=== PATIENT | female | born 1970 | race Caucasian/White ===

== ENCOUNTER 2018-02-27 12:29 | Emergency (ER) | payer MEDICAID ==
[~2018-02-27] VITALS: Ht 154.9 cm; Wt 60.8 kg
[~2018-02-27 12:29] MED LIST: GLIP10TA3 PO; VAS2.5 PO
[2018-02-27 12:36] VITALS: BP 152/79
[2018-02-27] MEDS ORDERED: VAS10 PO (12:42)
--- NOTE | 2018-02-27 12:42 | NUR ---
PT SENT TO LOBBY TO WAIT FOR A BED. VSS. WITH PATIENT.
--- NOTE | 2018-02-27 13:52 | NUR ---
pt ambulated to bed 3
--- NOTE | 2018-02-27 14:03 | NUR ---
PATIENT IS A47 YO FEMALE BIB SELF FOR VAGINAL BLEEDING AND ABDOMINAL PAIN. PATIENT IS AWAKE AND ALERT NO ACUTE DISTRESS. TO BED 3 AWAITING MD LIRA. Addendum: 02/27/18 at 1541 by MED1 C/O MCALLISTER & LOWER ABDOMINAL PAIN 03/04.
[2018-02-27 14:13] LABS: BASOPHILS % (AUTO) 0.3 % (0.0-2.0); EOSINOPHILS % (AUTO) 0.7 % (0.0-4.0); HEMOGLOBIN 10.6 g/dL (12.0-16.0); LYMPHOCYTES % (AUTO) 28.5 % (20.5-51.1); MEAN CORPUSCULAR HEMOGLOBIN 21 pg (27-31); MEAN CORPUSCULAR HGB CONC 31 g/dL (33-37); MEAN CORPUSCULAR VOLUME 66.1 fL (80-94); MONOCYTES # (AUTO) 0.4 K/uL (0.8-1.0); MONOCYTES % (AUTO) 5.7 % (1.7-9.3); NEUTROPHILS # (AUTO) 4.5 K/uL (1.8-7.7); NEUTROPHILS % (AUTO) 64.8 % (42.2-75.2); PLATELET COUNT (AUTO) 260 K/uL (140-450); RED BLOOD CELL COUNT(AUTO) 5.14 MIL/uL (4.20-5.40); RED CELL DISTRIBUTION WIDTH 17.1 % (11.6-13.7); WHITE BLOOD COUNT (AUTO) 6.9 K/uL (4.8-10.8)
[2018-02-27 14:17] LABS: ANION GAP 11.8 (8-16); CARBON DIOXIDE 27.1 mmol/L (21-32); CREATININE 0.8 mg/dL (0.6-1.3); POTASSIUM 3.9 mmol/L (3.5-5.1)
--- NOTE | 2018-02-27 15:46 | NUR ---
Patient being evaluated by DR PYLE at bedside.
[2018-02-27] MEDS ORDERED: KETOROLAC 60 MG/2 ML VIAL IM ONE (16:35)
[2018-02-27 17:05] VITALS: BP 147/61
--- NOTE | 2018-02-27 17:06 | NUR ---
Patient discharged with v/s stable. Written and verbal after care instructions given and explained. Patient alert, oriented and verbalized understanding of instructions. Ambulatory with steady gait. All questions addressed prior to discharge. ID band removed. Patient advised to follow up with PMD. Rx of KEFLEX, AND MOTRIN given. Patient educated on indication of medication including possible reaction and side effects. Opportunity to ask questions provided and answered.
== END 2018-02-27 17:06 | disposition home or self-care (01) ==
LOC: MED 12:29
DX: N93.8 Other specified abnormal uterine and vaginal bleeding (principal); N39.0 Urinary tract infection, site not specified; D25.9 Leiomyoma of uterus, unspecified; E11.9 Type 2 diabetes mellitus without complications; I10 Essential (primary) hypertension
CPT/HCPCS: 36415; 76830; 80048; 81002; 81025; 85025; 85610; 96372; 99285; J1885; Q0092

== ENCOUNTER 2018-05-18 19:35 | Emergency (ER) | payer MEDICAID ==
[~2018-05-18] VITALS: Ht 157.5 cm; Wt 60.3 kg
[~2018-05-18 19:35] MED LIST changes: +VAS10 PO; -VAS2.5 PO
[2018-05-18 19:40] VITALS: BP 170/85
[2018-05-18] MEDS ORDERED: HYDROcodone/APAP 5/325 MG 1 TAB TAB PO ONE (19:55)
[2018-05-18 20:51] VITALS: BP 167/77
== END 2018-05-18 20:52 | disposition home or self-care (01) ==
LOC: MED 19:35
DX: S92.331A Displaced fracture of third metatarsal bone, right foot, initial encounter for closed fracture (principal); S92.341A Displaced fracture of fourth metatarsal bone, right foot, initial encounter for closed fracture; E11.9 Type 2 diabetes mellitus without complications; I10 Essential (primary) hypertension; Z79.84 Long term (current) use of oral hypoglycemic drugs; Z79.899 Other long term (current) drug therapy; X58.XXXA Exposure to other specified factors, initial encounter; Y93.89 Activity, other specified; Y92.89 Other specified places as the place of occurrence of the external cause; Y99.8 Other external cause status
CPT/HCPCS: 29515; 73630; 99284

== ENCOUNTER 2018-10-30 21:08 | Emergency (ER) | payer MEDICAID ==
[~2018-10-30] VITALS: Ht 154.9 cm; Wt 63.5 kg
[2018-10-30 21:15] VITALS: BP 147/89
--- NOTE | 2018-10-30 21:25 | NUR ---
c/o rt ear ache and headache x3 days . no bleeding or drainage from ear. pt has not taken any otc meds for pain. pt sitting in bed, awake, acting appropriate, at bedside. pmh dm, htn
[2018-10-30] MEDS ORDERED: DIAZEPAM 5 MG TAB PO ONE (21:55)
[2018-10-30] MEDS ORDERED: KETOROLAC 30 MG/ML VIAL IM ONE (21:55)
--- NOTE | 2018-10-30 22:02 | NUR ---
pt sent to ct via bed with tech aaox4
[2018-10-30 22:49] VITALS: BP 142/78
--- NOTE | 2018-10-30 22:49 | NUR ---
Patient discharged with v/s stable. Written and verbal after care instructions given and explained. Patient alert, oriented and verbalized understanding of instructions. Ambulatory with steady gait. All questions addressed prior to discharge. ID band removed. Patient advised to follow up with PMD. Rx of FIORICET given. Patient educated on indication of medication including possible reaction and side effects. Opportunity to ask questions provided and answered.
== END 2018-10-30 22:41 | disposition home or self-care (01) ==
LOC: MED 21:08
DX: R51 Headache (principal); H92.01 Otalgia, right ear; I10 Essential (primary) hypertension; E11.9 Type 2 diabetes mellitus without complications
CPT/HCPCS: 70450; 81025; 96372; 99284; J1885

== ENCOUNTER 2018-12-17 21:19 | Emergency (ER) | payer MEDICAID ==
[~2018-12-17] VITALS: Ht 154.9 cm; Wt 58.2 kg
[~2018-12-17 21:19] MED LIST changes: +ENAL-197 PO; -VAS10 PO
[2018-12-17 21:28] VITALS: BP 144/74
--- NOTE | 2018-12-17 21:39 | NUR ---
PT AMBULATED TO THE RESTROOM, VSS
[2018-12-17] MEDS ORDERED: MECLIZINE 25 MG TAB PO ONE (21:40)
--- NOTE | 2018-12-17 21:50 | NUR ---
Patient ambulated to bed 7 with family. RN evaluating patient at bedside.
--- NOTE | 2018-12-17 22:30 | NUR ---
Pt presents to ED with complaints of dizziness that started this morning around 1100. Pt denies any syncope or LOC. Pt also c/o nausea, denies vomiting. Pt also c/o pain behing right ear, denies any injury or trauma. NAD noted. VSS. at bedside. Skin warm and dry, normal in color for ethnicity. Placed on bus monitor, pulse oximetry and blood pressure monitoring. NSR on bus monitor. HR 82. 98% on room air. Will continue to monitor, waiting for ERMD evaluation.
--- NOTE | 2018-12-18 00:31 | NUR ---
Pt ambulated to restroom with steady gait.
--- NOTE | 2018-12-18 00:48 | NUR ---
Dr. Fisher evaluating patient at bedside.
[2018-12-18] MEDS ORDERED: KETOROLAC 60 MG/2 ML VIAL IM ONE (00:55)
[2018-12-18] MEDS ORDERED: KETOROLAC 30 MG/ML VIAL ONE (01:06)
[2018-12-18 01:16] VITALS: BP 143/65
--- NOTE | 2018-12-18 01:16 | NUR ---
Patient discharged with v/s stable. Written and verbal after care instructions given and explained. Patient alert, oriented and verbalized understanding of instructions. Ambulatory with steady gait. All questions addressed prior to discharge. ID band removed. Patient advised to follow up with PMD. Rx of Cipro 500mg, Motrin 600mg and Zofran 8mg given. Patient educated on indication of medication including possible reaction and side effects. Opportunity to ask questions provided and answered.
== END 2018-12-18 01:16 | disposition home or self-care (01) ==
LOC: MED 21:19
DX: H92.01 Otalgia, right ear (principal); N39.0 Urinary tract infection, site not specified; E11.9 Type 2 diabetes mellitus without complications; I10 Essential (primary) hypertension; Z90.49 Acquired absence of other specified parts of digestive tract; Z98.890 Other specified postprocedural states; Z79.84 Long term (current) use of oral hypoglycemic drugs; Z79.899 Other long term (current) drug therapy
CPT/HCPCS: 81002; 81025; 96372; 99283; J1885; J8597

== ENCOUNTER 2019-02-14 13:26 | Emergency (ER) | payer MEDICAID ==
[~2019-02-14] VITALS: Ht 152.4 cm; Wt 59.0 kg
[2019-02-14 14:05] VITALS: BP 139/92
--- NOTE | 2019-02-14 14:24 | NUR ---
pt ambulated to bed 7
--- NOTE | 2019-02-14 14:30 | NUR ---
C/O COUGH AND HEADACHE FOR 3 DAYS, & N/V/FEVER. BREATHING UNLABORED, LUNGS CLEAR & EQUAL BILAT, BOWEL SOUNDS PRESENT X4, LBM 02/13/19 SKIN IS PINK/WARM/DRY; AAOX4 WITH EVEN AND STEADY GAIT; LUNGS CLEAR BL; HR EVEN AND REGULAR; VSS; PATIENT POSITIONED FOR COMFORT; HOB ELEVATED; BEDRAILS UP X1; BED DOWN. ER MD MADE AWARE OF PT STATUS.
[2019-02-14] MEDS ORDERED: ONDANSETRON 4 MG/2 ML VIAL IVP ONE (14:50)
[2019-02-14] MEDS ORDERED: KETOROLAC 30 MG/ML VIAL IVP ONE (14:50)
[2019-02-14] MEDS ORDERED: KETOROLAC 30 MG/ML VIAL IM ONE ×2 (14:50→14:55)
[2019-02-14] MEDS ORDERED: NACL 0.9% 1,000 ML IV ONE (14:50)
[2019-02-14] MEDS ORDERED: ONDANSETRON 4 MG ODT PO ONE ×2 (14:50→14:55)
[2019-02-14] MEDS ORDERED: ALBUTEROL SULFATE/IPRATROPIU 3 ML SOL IH ONE (14:55)
--- NOTE | 2019-02-14 15:00 | NUR ---
FLU SWAB COLLECTED AND SENT TO LAB
--- NOTE | 2019-02-14 15:51 | NUR ---
[facility]ER[facility] RESPIRATORY DRUG GIVEN NCOURAGED PATIENT FOR INTERMITTENT DEEP BREATHING DURING THERAPY
--- NOTE | 2019-02-14 16:11 | NUR ---
MADE AWARE OF SPO2% 92 ROOM AIR---
--- NOTE | 2019-02-14 16:24 | NUR ---
MD SPOKE WITH PT---PT DENIES SOB FULL CLEAR SPEECH--AGREE WITH DC HOME; WILL F/U WITH PMD
[2019-02-14 16:30] VITALS: BP 129/49
--- NOTE | 2019-02-14 16:30 | NUR ---
Patient discharged with v/s stable. Written and verbal after care instructions given and explained. Patient alert, oriented and verbalized understanding of instructions. Ambulatory with steady gait. All questions addressed prior to discharge. ID band removed. Patient advised to follow up with PMD. Rx of GUAIATUSSIN & ALBUTEROL given. Patient educated on indication of medication including possible reaction and side effects. Opportunity to ask questions provided and answered.
== END 2019-02-14 16:30 | disposition home or self-care (01) ==
LOC: MED 13:26
DX: J20.9 Acute bronchitis, unspecified (principal); E11.9 Type 2 diabetes mellitus without complications; I10 Essential (primary) hypertension; Z90.49 Acquired absence of other specified parts of digestive tract; Z79.84 Long term (current) use of oral hypoglycemic drugs; Z79.899 Other long term (current) drug therapy
CPT/HCPCS: 71045; 87804; 94640; 96372; 99283; J1885; J7620; Q0092; Q0162; 93005

== ENCOUNTER 2019-04-08 18:34 | Emergency (ER) | payer MEDICAID ==
[~2019-04-08] VITALS: Ht 154.9 cm; Wt 62.2 kg
[2019-04-08 18:36] VITALS: BP 127/81
--- NOTE | 2019-04-08 18:40 | NUR ---
TO LOBBY WITH VSS, AWAITNG BED IN ED.
--- NOTE | 2019-04-08 19:39 | NUR ---
PT TAKEN TO BED 12.
[2019-04-08 19:49] VITALS: BP 127/81
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
--- NOTE | 2019-04-08 21:10 | NUR ---
LACERATION TO L FOOT CLEANED BY EMT. PT STATED "IT DOESNT LOOK TO BAD. CAN I JUST LEAVE?" DR GALLAGHER MADE AWARE.
--- NOTE | 2019-04-08 21:15 | NUR ---
DR. GALLAGHER AGREED TO PT DISCHARGE. PT LEFT WITH DISCHAREGE INFORMATION.
== END 2019-04-08 21:15 | disposition left against medical advice (07) ==
LOC: MED 18:34
DX: S91.312A Laceration without foreign body, left foot, initial encounter (principal); E11.9 Type 2 diabetes mellitus without complications; F03.90 Unspecified dementia, unspecified severity, without behavioral disturbance, psychotic disturbance, mood disturbance, and anxiety; I10 Essential (primary) hypertension; Z90.49 Acquired absence of other specified parts of digestive tract; Z98.51 Tubal ligation status; Z79.84 Long term (current) use of oral hypoglycemic drugs; Z79.899 Other long term (current) drug therapy; W20.8XXA Other cause of strike by thrown, projected or falling object, initial encounter; Y93.89 Activity, other specified; Y92.89 Other specified places as the place of occurrence of the external cause; Y99.8 Other external cause status
CPT/HCPCS: 73630; 99283

== ENCOUNTER 2020-01-06 12:16 | Inpatient (IN) | payer MEDICAID ==
[~2020-01-06] VITALS: Ht 154.9 cm; Wt 60.8 kg
[2020-01-06 12:35] VITALS: BP 169/70
--- NOTE | 2020-01-06 12:57 | NUR ---
PATIENT AMBULATED TO BED 10
--- NOTE | 2020-01-06 13:06 | NUR ---
C/O PAIN 6/10 TO R FOOT. REDNESS NOTED AROUND 1ST TOE, WELL WHITE PATCHY SKIN SURROUNDING 1ST TOE. DENIES INJURY. PT AWAKE , ALERT, AFIBRILE, AMBULATORY WITH STEADY GAIT. HX: DM , HTN MEDS TAKEN
--- NOTE | 2020-01-06 14:14 | NUR ---
PT COMFORTABLE ON BED ,SIDE RAILS UP AND LOCK.
--- NOTE | 2020-01-06 14:20 | NUR ---
DR ROWLAND AT BEDSIDE EVALUATING PT.
[2020-01-06] MEDS ORDERED: NACL 0.9% 500 ML IV SCH (14:23)
[2020-01-06 15:03] LABS: BASOPHILS % (AUTO) 0.3 % (0.0-2.0); EOSINOPHILS # (AUTO) 0.1 K/uL (0-0.4); HEMATOCRIT 35.3 % (36-48); HEMOGLOBIN 11.6 g/dL (12.0-16.0); LYMPHOCYTES # (AUTO) 1.5 K/uL (2.5-16.5); LYMPHOCYTES % (AUTO) 23.9 % (20.5-51.1); MEAN CORPUSCULAR HEMOGLOBIN 26 pg (27-31); MEAN CORPUSCULAR HGB CONC 33 g/dL (33-37); MEAN CORPUSCULAR VOLUME 78.8 fL (80-94); MONOCYTES # (AUTO) 0.4 K/uL (0.8-1.0); NEUTROPHILS # (AUTO) 4.4 K/uL (1.8-7.7); NEUTROPHILS % (AUTO) 68.8 % (42.2-75.2); PLATELET COUNT (AUTO) 242 K/uL (140-450); RED BLOOD CELL COUNT(AUTO) 4.48 MIL/uL (4.20-5.40); RED CELL DISTRIBUTION WIDTH 14.8 % (11.6-13.7); WHITE BLOOD COUNT (AUTO) 6.4 K/uL (4.8-10.8)
[2020-01-06 15:16] LABS: CARBON DIOXIDE 30.9 mmol/L (21-32); CREATININE 0.9 mg/dL (0.6-1.3); POTASSIUM 3.9 mmol/L (3.5-5.1); PROTHROMBIN TIME 9.5 secs (10.8-13.4); TOTAL BILIRUBIN 0.3 mg/dL (0.0-1.0)
--- NOTE | 2020-01-06 16:14 | NUR ---
XRAY AT BEDSIDE.
--- NOTE | 2020-01-06 16:21 | NUR ---
PT C/O HEADACHE AT 05/04 DR ROWLAND INFORMED.
[2020-01-06] MEDS ORDERED: VANCOMYCIN 1,000 MG in DEXTROSE 5% 250 ML IV ONE (16:25)
[2020-01-06] MEDS ORDERED: KETOROLAC 30 MG/ML VIAL IVP ONE (16:25)
[2020-01-06] MEDS ORDERED: VANCOMYCIN 1,000 MG VIAL ONE ×2 (16:29→16:31)
[2020-01-06] MEDS ORDERED: LORazepam 2 MG/ML VIAL IM/IVP PRN (17:05)
[2020-01-06] MEDS ORDERED: ZOLPIDEM 5 MG TAB PO PRN (17:05)
[2020-01-06] MEDS ORDERED: ONDANSETRON 4 MG/2 ML VIAL IM/IVP PRN (17:05)
[2020-01-06] MEDS ORDERED: DOCUSATE SODIUM 100 MG GELCAP PO PRN (17:05)
[2020-01-06] MEDS ORDERED: MORPHINE SULFATE 2 MG/ML SYR IVP PRN (17:05)
[2020-01-06] MEDS ORDERED: ACETAMINOPHEN 325 MG TAB PO PRN (17:05)
[2020-01-06] MEDS ORDERED: HYDROcodone/APAP 5/325 MG 1 TAB TAB PO PRN (17:05)
[2020-01-06] MEDS ORDERED: DEXTROSE 50% 50 ML SYR IVP PRN (17:05)
[2020-01-06] MEDS ORDERED: VANCOMYCIN PER PHARMACY MC PRN (17:10)
--- NOTE | 2020-01-06 17:50 | NUR ---
Patient will be admitted to care of DR GRIMM. Admited to TELE. Will go to room 119 B. Belongings list completed. Report to robert DREW.
--- NOTE | 2020-01-06 17:50 | NUR ---
RECEIVED BEDSIDE REPORT FROM ED NURSE. PT RESTING IN BED UPON ARRIVAL. ABLE TO MAKE NEEDS KNOWN. RESPIRATIONS EVEN AND UNLABORED WITH NO SOB OR RESPIRATORY DISTRESS. SKIN WARM AND DRY TO TOUCH. IV SITE IN RIGHT WRIST IS CLEAN, DRY, AND INTACT. MRSA SWAB COLLECTED. VITAL SIGNS ARE: 145/75 BP, 88 HR, 17 RR, 97.9 TEMP, 99% SPO2 ON RA. SAFETY MEASURES IN PLACE. WILL CONTINUE TO MONITOR.
[2020-01-06 18:23] LABS: CHOL/HDL RATIO 5.8 (1-4.5); MAGNESIUM 1.8 mg/dL (1.8-2.4); THYROID STIMULATING HORMONE 0.88 uIU/mL (0.34-3.74)
[2020-01-06] MEDS: NACL 0.9% 1,000 ML IV SCH (18:40)
--- NOTE | 2020-01-06 18:45 | NUR ---
ADMINISTERED SCHED IVF PRESCRIBED PER MD ORDER. PT TOLERATED WELL. MEDICATION EDUCATION PERFORMED. PT VERBALIZED UNDERSTANDING. SAFETY MEASURES IN PLACE. WILL CONTINUE TO MONITOR.
--- NOTE | 2020-01-06 19:12 | NUR ---
ENDORSED AT BEDSIDE WITH NIGHTSHIFT NURSE. PT RESTING IN BED UPON ARRIVAL. ABLE TO MAKE NEEDS KNOWN. RESPIRATIONS EVEN AND UNLABORED WITH NO SOB OR RESPIRATORY DISTRESS. SKIN WARM AND DRY TO TOUCH. SAFETY MEASURES IN PLACE. PT IS STABLE
--- NOTE | 2020-01-06 19:20 | NUR ---
RECEIVED REPORT FROM DAY SHIFT NURSE. PATIENT AWAKE, ALERT, AND COOPERATIVE. ADMITTING DX: DIABETIC FOOT. PATIENT IS HAITIAN SPEAKING ONLY, USED [employer] ASSOCIATE PROFESSOR #[id number]. RESPIRATIONS EVEN AND UNLABORED ON ROOM AIR. NO DISTRESS NOTED. SKIN IS WARM AND DRY. RIGHT BIG TOE CLOSED. DENIES PAIN. HEART RATE REGULAR. S1 AND S2 NOTED. LUNG SOUNDS CLEAR UPON AUSCULTATION. BOWEL SOUNDS PRESENT ON ALL QUADRANTS. ABDOMEN SOFT AND NON-TENDER. LAST BM YESTERDAY 01/05/2020. ORIENT PATIENT TO ROOM, STAFF, AND CALL LIGHT. ALL SAFETY MEASURES IN PLACE. BED IN LOW POSITION, CALL LIGHT WITHIN REACH AND VERBALIZED ITS USE. WILL CONTINUE TO MONITOR.
[2020-01-06] MEDS ORDERED: glipiZIDE 10 MG TAB PO SCH (21:00)
[2020-01-06] MEDS: ENALAPRIL 10 MG TAB PO SCH (21:24)
[2020-01-06] MEDS: INSULIN LISPRO SLIDING SCALE 100 UNITS/ML VIAL SUBQ PRN (21:26)
[2020-01-06] MEDS: BLOOD GLUCOSE MONITORING 1 DEV DEV FS SCH (21:28)
--- NOTE | 2020-01-06 21:30 | NUR ---
SCHEDULED MEDICATIONS GIVENS. PATIENT DENIES PAIN AT THIS TIME. SAFETY PRECAUTIONS IN PLACE. BED IN LOW POSITION, CALL LIGHT WITHIN REACH. WILL CONTINUE TO MONITOR.
[2020-01-06] MEDS: glipiZIDE 10 MG TAB PO SCH (21:31)
[2020-01-06 21:49] VITALS: BP 171/67
[2020-01-06] MEDS ORDERED: PIPERACILLIN/TAZOBACTAM 3.375 GM VIAL IV ONE (23:46)
[2020-01-06] MEDS: PIPERACILLIN/TAZOBACTAM 3.375 GM in DEXTROSE 5% 50 ML IV SCH (23:55)
--- NOTE | 2020-01-06 23:55 | NUR ---
PATIENT ON BED SLEEPING, AROUSABLE TO VOICE. FIRST DOSE OF ZOSYN GIVEN. REMINDED PATIENT ON NPO STATUS STARTING AT MIDNIGHT. PATIENT VERBALIZED UNDERSTANDING. WILL CONTINUE TO MONITOR.
[2020-01-07] VITALS: BP 167/64
--- NOTE | 2020-01-07 00:30 | NUR ---
PT RECEIVED ORDERED IV ABT ZOSYN NO ADVERSE SIDE EFFECTS NOTED. PT EDUCATION REGARDING MEDICATIONS AND SIDE EFFECTS PROVIDED AT BEDSIDE. PT C/O 06/04 HEADACHE WHICH SHE SAID CAME BACK FORM EARLIER ON. PT RECEIVED MORPHINE IVP FOR SEVERE PAIN. DIANNE FROM NUCLEAR MEDICINE CAME AND BROUGHT PT BY W/C TO NUCLEAR MEDICINE TO COMPLETE TEST FOR BONE SCAN.
--- NOTE | 2020-01-07 02:21 | NUR ---
ROUNDS MADE. PATIENT LYING IN BED SLEEPING. NO SIGNS OF DISTRESS NOTED. IV PATENT AND INFUSING WELL. SAFETY MEASURES IN PLACE. BED IN LOWEST POSITION, SIDE RAILS RAISED, CALL LIGHT WITHIN REACH. KEPT COMFORTABLE. WILL CONTINUE TO MONITOR.
[2020-01-07 04:00] VITALS: BP 169/65
--- NOTE | 2020-01-07 04:05 | NUR ---
ROUNDS DONE. PATIENT LYING IN BED SLEEPING, AROUSABLE TO VOICE. VITAL SIGNS ARE STABLE. DENIES ANY PAIN OR DISCOMFORT AT THIS TIME. REMINDED ABOUT NPO STATUS. PATIENT AMENABLE. KEPT COMFORTABLE. WILL CONTINUE TO MONITOR.
[2020-01-07] MEDS ORDERED: hydrALAZINE 20 MG/ML VIAL IVP ONE (04:15)
[2020-01-07] MEDS ORDERED: VANCOMYCIN 500 MG VIAL ONE (04:44)
[2020-01-07] MEDS: VANCOMYCIN 500 MG in DEXTROSE 5% 100 ML IV SCH ×2 (05:11→16:48)
[2020-01-07] MEDS ORDERED: PIPERACILLIN/TAZOBACTAM 3.375 GM VIAL IV ONE (05:21)
[2020-01-07] MEDS: PIPERACILLIN/TAZOBACTAM 3.375 GM in DEXTROSE 5% 50 ML IV SCH ×3 (06:12→18:08)
--- NOTE | 2020-01-07 06:30 | NUR ---
REASSESSED PATIENT'S BP 172/69. PATIENT DENIES ANY DISCOMFORT. RELAYED BP TO MD. MD ORDERED TO GIVE MORNING BP MEDS NOW. WILL CONTINUE TO MONITOR.
[2020-01-07] MEDS: BLOOD GLUCOSE MONITORING 1 DEV DEV FS SCH ×4 (06:33→19:46)
[2020-01-07] MEDS: ENALAPRIL 10 MG TAB PO SCH ×2 (06:37→19:35)
--- NOTE | 2020-01-07 07:05 | NUR ---
RECEIVED REPORT FROM NIGHT NURSE FOR CONTINUITY OF CARE, PT IS STABLE, AAOX4, SOLOMON ISLANDER SPEAKING, PT HAS R WRIST 22G INFUSING NS AT 60 ML/H, PT NPO AFTER MIDNIGHT, INTRODUCE SELF, UPDATE WHITEBOARD, CALL LIGHT WITHIN REACH, SAFETY MEASURES IN PLACE, WILL CONTINUE TO MONITOR.
--- NOTE | 2020-01-07 07:16 | NUR ---
ENDORSED TO DAY SHIFT NURSE. PATIENT IN STABLE CONDITION. NO COMPLAINTS OF PAIN MADE. SAFETY MEASURES IN PLACE. KEPT ON NPO ORDERED.
[2020-01-07 07:42] LABS: APPEARANCE,URINE HAZY (CLEAR); BILIRUBIN,URINE NEGATIVE (NEGATIVE); BLOOD, URINE 2+ (NEGATIVE); COLOR,URINE YELLOW (YELLOW); LEUKOCYTE ESTERASE ,URINE NEGATIVE (NEGATIVE); NITRITE, URINE NEGATIVE (NEGATIVE); UGLUCOSE 2+ (NEGATIVE)
[2020-01-07 08:00] VITALS: BP 164/63
[2020-01-07 08:10] LABS: BASOPHILS % (AUTO) 0.6 % (0.0-2.0); EOSINOPHILS # (AUTO) 0.1 K/uL (0-0.4); EOSINOPHILS % (AUTO) 2.7 % (0.0-4.0); HEMATOCRIT 32.9 % (36-48); HEMOGLOBIN 10.8 g/dL (12.0-16.0); LYMPHOCYTES # (AUTO) 1.4 K/uL (2.5-16.5); LYMPHOCYTES % (AUTO) 30.8 % (20.5-51.1); MEAN CORPUSCULAR HEMOGLOBIN 26 pg (27-31); MEAN CORPUSCULAR HGB CONC 33 g/dL (33-37); MEAN CORPUSCULAR VOLUME 78.4 fL (80-94); MONOCYTES # (AUTO) 0.4 K/uL (0.8-1.0); MONOCYTES % (AUTO) 7.6 % (1.7-9.3); NEUTROPHILS # (AUTO) 2.7 K/uL (1.8-7.7); NEUTROPHILS % (AUTO) 58.3 % (42.2-75.2); PLATELET COUNT (AUTO) 232 K/uL (140-450); RED BLOOD CELL COUNT(AUTO) 4.19 MIL/uL (4.20-5.40); RED CELL DISTRIBUTION WIDTH 14.6 % (11.6-13.7); WHITE BLOOD COUNT (AUTO) 4.6 K/uL (4.8-10.8)
[2020-01-07 08:48] LABS: ANION GAP 12.8 (8-16); CARBON DIOXIDE 26.9 mmol/L (21-32); POTASSIUM 3.7 mmol/L (3.5-5.1)
[2020-01-07] MEDS ORDERED: glipiZIDE 10 MG TAB PO SCH (09:00)
[2020-01-07 09:01] LABS: BARBITURATE, URINE NEGATIVE ng/ml (NEG <=200); BENZODIAZEPINE, URINE NEGATIVE ng/mL (NEG <=200); CANNABINOID, URINE NEGATIVE ng/mL (NEG <=50); COCAINE, URINE NEGATIVE ng/mL (NEG <=300); OPIATE, URINE NEGATIVE ng/mL (NEG <=2000); PHENCYCLIDINE SCREEN,URINE NEGATIVE ng/mL (NEG <=25)
[2020-01-07 09:15] LABS: RBC,URINE 0-5 /HPF (0-5)
[2020-01-07] MEDS: glipiZIDE 10 MG TAB PO SCH ×2 (09:18→16:47)
[2020-01-07] MEDS: ATORVASTATIN 20 MG TAB PO SCH (09:18)
--- NOTE | 2020-01-07 09:24 | NUR ---
ADMINISTERED ORDERED MEDICATION, PT EDUCTION GIVEN, PT VERBALIZED UNDERSTANDING, PT IS STABLE, CALL LIGHT WITHIN REACH.
[2020-01-07] MEDS: NACL 0.9% 1,000 ML IV SCH (09:43)
--- NOTE | 2020-01-07 11:30 | NUR ---
NOTIFIED DR ESTRADA OF PT'S ELEVATED BLOOD PRESSURE OF 178/57, AWAITING ORDERS FROM MD AND WILL GIVE MEDICATION ONCE ORDERED VERIFIED BY PHARMACY, PT IS OTHERWISE STABLE, NO SIGNS OF DISTRESS NOTED.
[2020-01-07] MEDS ORDERED: hydrALAZINE 20 MG/ML VIAL IVP SCH (11:40)
[2020-01-07] MEDS ORDERED: METOPROLOL SUCCINATE 50 MG TABER PO SCH (11:45)
[2020-01-07 12:00] VITALS: BP 178/57
[2020-01-07] MEDS: INSULIN LISPRO SLIDING SCALE 100 UNITS/ML VIAL SUBQ PRN ×2 (12:01→16:57)
--- NOTE | 2020-01-07 12:04 | NUR ---
ADMINISTERED ORDERED MEDICATION, EDUCATION GIVEN, PT TOLERATED WELL, PT IS STABLE, CALL LIGHT WITHIN REACH.
--- NOTE | 2020-01-07 12:13 | NUR ---
DC PLANN[age] YRS OLD FEMALE PATIENT WAS ADMITTED FROM HOME WITH A DX OF DIABETIC FOOT ULCER . PT HAS A HX OF DM, HTN. XRAY RIGHT TOE SHOWED OSTEOMYELITIS NOT EXCLUDED ,STARTED ON IV VANCOMYCIN BLOOD AND URINE CULTURE PENDING. ID DR MAC RECOMMENDED SURGICAL EVAL FOR DEBRIDEMENT AND CONTINUE VANCO AND ZOSYN. . SEEN BY PODIATRY DR SANDOVAL PERFORMED EXCISIONAL DEBRIDEMENT OF THE RIGHT HALLUX AND SUGGESTED BONE SCAN IS UNNECESSARY AT THIS TIME CLINICAL PICTURE DOES NOT SUGGEST OSTEOMYELITIS DC PLAN PER MD ORDER .CM TO FOLLOW
--- NOTE | 2020-01-07 12:45 | NUR ---
ADMINISTERED ORDERED MEDICATION, EDUCATION GIVEN, PT VERBALIZED UNDERSTANDING, PT IS STABLE, CALL LIGHT WITHIN REACH.
[2020-01-07] MEDS: NON ADHERENT DRESSING TP SCH (13:37)
--- NOTE | 2020-01-07 13:40 | NUR ---
PT IS AWAKE, RESTING IN BED, PT IS STABLE, CALL LIGHT WITHIN REACH.
--- NOTE | 2020-01-07 15:41 | NUR ---
PT RESTING IN BED, PT IS STABLE, RESPIRATIONS ARE EVEN AND UNLABORED ON ROOM AIR, CALL LIGHT WITHIN REACH.
[2020-01-07 16:00] VITALS: BP 176/69
[2020-01-07 16:12] LABS: CHOL/HDL RATIO 6.3 (1-4.5)
--- NOTE | 2020-01-07 16:25 | NUR ---
NOTIFIED DR ESTRADA PT'S BLOOD PRESSURE IS ELEVATED: 176/69 AND HR 76, AWAITING ORDERS AND WILL CARRY THEM OUT ONCE RECEIVED
[2020-01-07] MEDS ORDERED: hydrALAZINE 20 MG/ML VIAL IVP PRN (18:05)
--- NOTE | 2020-01-07 18:38 | NUR ---
ADMINISTERED HYDRALAZINE PRN FOR BP 176/69, HR 76, PT EDUCATION GIVEN, PT VERBALIZED UNDERSTANDING, PT TOLERATED MEDICATION WELL, PT IS STABLE, CALL LIGHT WITHIN REACH.
--- NOTE | 2020-01-07 19:03 | NUR ---
PT DID NOT CONSUME DINNER, PT IS DUE TO HAVE NUCLEAR MEDICINE AND PT STATES SHE IS NERVOUS AND DOES NOT WANT TO EAT, CALLED [facility] AND ORDERED ANOTHER TRAY THE PT DID EAT THE OTHER FOOD.
--- NOTE | 2020-01-07 19:05 | NUR ---
GAVE REPORT TO NIGHT NURSE FOR CONTINUITY OF CARE, PT IS STABLE.
--- NOTE | 2020-01-07 19:05 | NUR ---
RECEIVED REPORT FROM ADILENE RN DAYSHIFT NURSE AT BEDSIDE FOR CONTINUITY OF CARE, PT IN STABLE CONDITION.
[2020-01-07] MEDS: APAP/BUTAL/CAFF 325/50/40 MG 1 TAB PO PRN (19:35)
--- NOTE | 2020-01-07 19:40 | NUR ---
PT WAS GIVEN DUE MEDICATION OF VASOTEC B/P 139/51 HR 84. PT ALSO GIVEN FLORECET PO/PRN FOR C/O OF MODERATE HEADACHE. FINGERSTICK IS 140. NO HUMALOG COVERAGE NEEDED. PT IV SITE INTACT AND SHE WAS HEP LOCKED FOR NUCLEAR TEST. RIGHT FOOT DRESSING INTACT WITH NO DRAINAGE NOTED. PT WAS TAKEN DOWN VIA W/C FOR NUCLEAR TEST. Addendum: 01/07/20 at 2001 by Chelo Worley RN PRN HEADACHE MEDICATION IS FIORICET
--- NOTE | 2020-01-07 20:30 | NUR ---
PT RETURNED TO FROM NUCLEAR TESTING. SHE WAS RECONNECTED TO THE IV FLUIDS OF NORMAL SALINE RUNNING AT 60MLS/ ORDERED. IV SITE INTACT AND ASYMPTOMATIC. SHE SAID THAT SHE IS FEELING BETTER FROM HER HEADACHE. PT SAID THAT SHE WAS NOT HUNGRY WHEN OFFERED HER DINNER. ALL UNIVERSAL FALLS PRECAUTIONS IN PLACE.
[2020-01-07 21:00] VITALS: BP 134/50
--- NOTE | 2020-01-07 22:30 | NUR ---
PT IN BED TALKING ON THE PHONE, SHE DENIES ANY PAIN IV SITE INTACT AND RUNNING N/S AT 60MLS/HR. ALL UNIVERSAL FALLS PRECAUTIONS IN PLACE.
[2020-01-08] VITALS: BP 158/60
[2020-01-08] MEDS: PIPERACILLIN/TAZOBACTAM 3.375 GM in DEXTROSE 5% 50 ML IV SCH ×5 (00:14→23:57)
--- NOTE | 2020-01-08 00:30 | NUR ---
PT RECEIVED ZOSYN IV ABT PT EDUCATION PROVIDED AT BEDSIDE INCLUDING SIDE EFFECTS. NO ADVERSE EFFECTS NOTED. PT C/O SEVERE HEADACHE 06/04, RECEIVED IV PRN MORPHINE FOR SEVERE PAIN. V/S FOLLOWS: T 98.7 P 78 R 18 B/P 158/60 02 99% ON 2.5 LITERS SUPPLEMENTAL 02. [facility]C TO CONTINUE THE ORDERED BONE SCAN.
--- NOTE | 2020-01-08 01:33 | NUR ---
PT RETURNED FORM BONE SCAN.
[2020-01-08] MEDS: NACL 0.9% 1,000 ML IV SCH ×2 (02:23→15:59)
--- NOTE | 2020-01-08 02:30 | NUR ---
PT IN BED ASLEEP IV SITE INTACT AND RUNNING N/S AT 60 MLS/HR ORDERED. ALL UNIVERSAL PRECAUTIONS IN PLACE.
--- NOTE | 2020-01-08 03:45 | NUR ---
PT IN BED SLEEPING NO S/S OF PAIN OR DISTRESS NOTED. V/S FOLLOWS: T 97.5 P 74 R 18 B/P 155/53 02 98% ON ROOM AIR. ALL UNIVERSAL FALLS PRECAUTIONS IN PLACE.
[2020-01-08 04:00] VITALS: BP 155/53
--- NOTE | 2020-01-08 04:32 | NUR ---
VANCO TROUGH BEING DRAWN AT BEDSIDE.
[2020-01-08] MEDS: VANCOMYCIN 500 MG in DEXTROSE 5% 100 ML IV SCH (05:05)
--- NOTE | 2020-01-08 05:08 | NUR ---
VANCOCIN IV ABT HUNG AND RUNNING AT 100MLS/HR ORDERED. PT ASLEEP NO S/S OF PAIN OR DISTRESS NOTED.
[2020-01-08] MEDS: BLOOD GLUCOSE MONITORING 1 DEV DEV FS SCH ×4 (06:31→21:04)
--- NOTE | 2020-01-08 06:31 | NUR ---
PT RADHA HUERTA AND RUNNING ORDERED F/S IS 142 NO COVERAGE NEEDED.
[2020-01-08 06:35] LABS: BASOPHILS % (AUTO) 0.7 % (0.0-2.0); EOSINOPHILS # (AUTO) 0.1 K/uL (0-0.4); EOSINOPHILS % (AUTO) 2.6 % (0.0-4.0); HEMATOCRIT 28.7 % (36-48); HEMOGLOBIN 9.8 g/dL (12.0-16.0); LYMPHOCYTES # (AUTO) 1.7 K/uL (2.5-16.5); LYMPHOCYTES % (AUTO) 37.1 % (20.5-51.1); MEAN CORPUSCULAR HEMOGLOBIN 26 pg (27-31); MEAN CORPUSCULAR HGB CONC 34 g/dL (33-37); MEAN CORPUSCULAR VOLUME 77.7 fL (80-94); MONOCYTES # (AUTO) 0.4 K/uL (0.8-1.0); MONOCYTES % (AUTO) 8.8 % (1.7-9.3); NEUTROPHILS # (AUTO) 2.4 K/uL (1.8-7.7); NEUTROPHILS % (AUTO) 50.8 % (42.2-75.2); PLATELET COUNT (AUTO) 214 K/uL (140-450); RED BLOOD CELL COUNT(AUTO) 3.69 MIL/uL (4.20-5.40); RED CELL DISTRIBUTION WIDTH 14.3 % (11.6-13.7); WHITE BLOOD COUNT (AUTO) 4.7 K/uL (4.8-10.8)
--- NOTE | 2020-01-08 07:10 | NUR ---
RECEIVED REPORT FROM PLANT PROPAGATOR NURSE. PT IS SLEEPING. NO SIGNS OF DISTRESS. CALL LIGHT WITHIN PT'S REACH. PT HAS IV AT RIGHT WRIST 22G WITH NS RUNNING AT 60 ML/HR. PT HAS NO KNOWN ALLERGIES, FULL CODE. WILL CONTINUE TO MONITOR.
--- NOTE | 2020-01-08 07:47 | NUR ---
PATIENT HAS BEEN SCREENED AND CATEGORIZED HIGH NUTRITION RISK. PATIENT WILL BE SEEN WITHIN 1-2 DAYS OF ADMISSION. 01/08/20 01/09/[address]
[2020-01-08 08:00] VITALS: BP 140/60
[2020-01-08 08:10] LABS: MAGNESIUM 1.9 mg/dL (1.8-2.4); PHOSPHORUS 3.7 mg/dL (2.5-4.9)
[2020-01-08] MEDS: ATORVASTATIN 20 MG TAB PO SCH (08:14)
[2020-01-08] MEDS: glipiZIDE 10 MG TAB PO SCH ×2 (08:14→16:21)
[2020-01-08] MEDS: ENALAPRIL 10 MG TAB PO SCH ×2 (08:15→20:59)
[2020-01-08] MEDS: METOPROLOL SUCCINATE 50 MG TABER PO SCH (08:15)
--- NOTE | 2020-01-08 08:19 | NUR ---
SCHEDULED MEDS GIVEN. PT TOLERATED WELL. WILL CONTINUE TO MONITOR
[2020-01-08 08:30] LABS: ANION GAP 11.3 (8-16); CARBON DIOXIDE 26.3 mmol/L (21-32); POTASSIUM 3.6 mmol/L (3.5-5.1)
[2020-01-08] MEDS ORDERED: amLODIPine 5 MG TAB PO ONE (09:00)
--- NOTE | 2020-01-08 11:30 | NUR ---
GLUCOSE CHECKED = 235. INSULIN COVERAGE NEEDED
--- NOTE | 2020-01-08 11:48 | NUR ---
TRANSFER ORDER TO MED-SURG. TELE MONITOR REMOVED. WILL CONTINUE TO MONITOR
[2020-01-08 12:00] VITALS: BP 139/76
--- NOTE | 2020-01-08 12:05 | NUR ---
SCHEDULED MEDS GIVEN. INSULIN 4 UNITS GIVEN SUBQ. WILL CONTINUE TO MONITOR
[2020-01-08] MEDS: NON ADHERENT DRESSING TP SCH (12:17)
[2020-01-08] MEDS: INSULIN LISPRO SLIDING SCALE 100 UNITS/ML VIAL SUBQ PRN ×3 (12:21→21:03)
--- NOTE | 2020-01-08 13:20 | NUR ---
WOUND DRESSING DONE ON RIGHT TOE. XEROFORM APPLIED AND CLEAN DRESSING.
[2020-01-08 16:00] VITALS: BP 144/83
--- NOTE | 2020-01-08 16:02 | NUR ---
NEW NS 1,000L HANGED AND INFUSING AT 60 ML/HR.
[2020-01-08] MEDS: VANCOMYCIN 750 MG in NACL 0.9% 250 ML IV SCH (16:21)
--- NOTE | 2020-01-08 16:33 | NUR ---
SCHEDULED MEDS GIVEN. PT TOLERATED WELL. WILL CONTINUE TO MONITOR
--- NOTE | 2020-01-08 16:33 | NUR ---
GLUCOSE CHECKED = 223. 4 UNITS OF INSULIN GIVEN SUBQ ON RT DELTOID.
--- NOTE | 2020-01-08 18:09 | NUR ---
SCHEDULED MEDS GIVEN. PT TOLERATED WELL. WILL CONTINUE TO MONITOR.
--- NOTE | 2020-01-08 19:20 | NUR ---
RECEIVED BEDSIDE REPORT FROM DAY SHIFT NURSE. PATIENT IS ASLEEP AROUSABLE BY TOUCH AND NAME. RESPIRATION EVEN UNLABORED ON ROOM AIR. NO DISTRESS NOTED. SKIN IS WARM AND DRY. IV PATENT AND INTACT. PLAN OF CARE WAS DISCUSSED. ALL SAFETY MEASURES IN PLACE. BED IS AT LOW POSITION. CALL LIGHT WITHIN REACH. WILL CONTINUE TO MONITOR.
--- NOTE | 2020-01-08 19:23 | NUR ---
REPORT GIVEN TO SECURITY THREAT ANALYST NURSE FOR CONTINUITY OF CARE. PT IS AWAKE, NO SIGNS OF DISTRESS. CALL LIGHT WITHIN PT'S REACH, BED ON LOW, SIDERAILS UP.
--- NOTE | 2020-01-08 21:06 | NUR ---
ALL SCHEDULED MEDS WERE GIVEN PER ORDER. NO ASE NOTED. WILL CONTINUE TO MONITOR.
--- NOTE | 2020-01-08 23:20 | NUR ---
CHECKED PATIENT. PATIENT IS SLEEPING RESPIRATION EVEN UNLABORED ON ROOM AIR. NO DISTRESS NOTED. WILL CONTINUE TO MONITOR.
[2020-01-09] VITALS: BP 160/55
--- NOTE | 2020-01-09 00:03 | NUR ---
ROUNDS DONE. PATIENT ASLEEP BUT AROUSABLE TO VOICE. SCHEDULED MEDS GIVEN. WOUND DRESSING CHANGED. WOUND STILL PRESENT , NO DISCHARGE NOTED. WILL CONTINUE TO MONITOR.
--- NOTE | 2020-01-09 00:38 | NUR ---
VITALS WERE TAKEN. PATIENT IS IN STABLE CONDITION. NO DISTRESS NOTED. WILL CONTINUE TO MONITOR.
--- NOTE | 2020-01-09 02:43 | NUR ---
CHECKED PATIENT. PATIENT SLEEPING. RESPIRATION EVEN UNLABORED ON ROOM AIR. NO DISTRESS NOTED. WILL CONTINUE TO MONITOR.
--- NOTE | 2020-01-09 04:00 | NUR ---
CHECKED PATIENT. PATIENT SLEEPING RESPIRATION EVEN UNLABORED ON ROOM AIR. NO DISTRESS NOTED. WILL CONTINUE TO MONITOR.
[2020-01-09] MEDS: VANCOMYCIN 750 MG in NACL 0.9% 250 ML IV SCH (04:51)
[2020-01-09 05:51] LABS: MAGNESIUM 1.7 mg/dL (1.8-2.4); PHOSPHORUS 3.4 mg/dL (2.5-4.9)
[2020-01-09 05:52] LABS: ANION GAP 10.4 (8-16); CARBON DIOXIDE 27.2 mmol/L (21-32); POTASSIUM 3.6 mmol/L (3.5-5.1)
[2020-01-09 06:04] LABS: BASOPHILS % (AUTO) 0.9 % (0.0-2.0); EOSINOPHILS # (AUTO) 0.1 K/uL (0-0.4); EOSINOPHILS % (AUTO) 1.6 % (0.0-4.0); HEMATOCRIT 27.6 % (36-48); HEMOGLOBIN 9.2 g/dL (12.0-16.0); LYMPHOCYTES # (AUTO) 1.6 K/uL (2.5-16.5); LYMPHOCYTES % (AUTO) 35.1 % (20.5-51.1); MEAN CORPUSCULAR HEMOGLOBIN 26 pg (27-31); MEAN CORPUSCULAR HGB CONC 34 g/dL (33-37); MEAN CORPUSCULAR VOLUME 78.3 fL (80-94); MONOCYTES # (AUTO) 0.4 K/uL (0.8-1.0); MONOCYTES % (AUTO) 8.2 % (1.7-9.3); NEUTROPHILS # (AUTO) 2.4 K/uL (1.8-7.7); NEUTROPHILS % (AUTO) 54.2 % (42.2-75.2); PLATELET COUNT (AUTO) 195 K/uL (140-450); RED BLOOD CELL COUNT(AUTO) 3.52 MIL/uL (4.20-5.40); RED CELL DISTRIBUTION WIDTH 14.5 % (11.6-13.7); WHITE BLOOD COUNT (AUTO) 4.5 K/uL (4.8-10.8)
[2020-01-09] MEDS: PIPERACILLIN/TAZOBACTAM 3.375 GM in DEXTROSE 5% 50 ML IV SCH ×2 (06:38→12:24)
[2020-01-09] MEDS: BLOOD GLUCOSE MONITORING 1 DEV DEV FS SCH ×2 (06:41→12:20)
--- NOTE | 2020-01-09 07:19 | NUR ---
ENDORSED PATIENT TO DAY SHIFT NURSE. PATIENT IS IN STABLE CONDITION
--- NOTE | 2020-01-09 07:22 | NUR ---
RECEIVED BEDSIDE REPORT FROM NIGHT NURSE. PATIENT IN BED, ASLEEP, EASILY AROUSABLE BY NAME OR TOUCH. SKIN WARM AND DRY TO TOUCH. RESPIRATION EVEN AND UNLABORED. IV INTACT AND PATENT TO RIGHT WRIST WITH IVF NS @ 60ML/HR. PLANS OF CARE DISCUSSED. SAFETY MEASURES IN PLACE. BED IN LOW POSITION. CALL LIGHT WITHIN REACH.
[2020-01-09 08:00] VITALS: BP 170/65
[2020-01-09] MEDS: METOPROLOL SUCCINATE 50 MG TABER PO SCH (08:14)
[2020-01-09] MEDS: glipiZIDE 10 MG TAB PO SCH (08:14)
[2020-01-09] MEDS: ENALAPRIL 10 MG TAB PO SCH (08:15)
[2020-01-09] MEDS: APAP/BUTAL/CAFF 325/50/40 MG 1 TAB PO PRN (08:22)
[2020-01-09] MEDS ORDERED: AMOX1TAB8 PO (08:42)
[2020-01-09] MEDS ORDERED: LACT-81 PO (08:42)
[2020-01-09] MEDS ORDERED: ATORVASTATIN 20 MG TAB PO SCH (09:00)
[2020-01-09 09:15] VITALS: BP 159/50
--- NOTE | 2020-01-09 09:30 | NUR ---
PATIENT IN STABLE CONDITION. PT AAOX4. DENIES ANY PAIN OR DISCOMFORT. CALL LIGHT WITHIN REACH.
--- NOTE | 2020-01-09 11:06 | NUR ---
ROUNDS MADE. PATIENT AAOX4. NO S/S OF DISTRESS NOTED. CALL LIGHT WITHIN REACH.
[2020-01-09] MEDS ORDERED: CIPR500T4 PO (11:35)
[2020-01-09] MEDS: NACL 0.9% 1,000 ML IV SCH (11:43)
[2020-01-09] MEDS: INSULIN LISPRO SLIDING SCALE 100 UNITS/ML VIAL SUBQ PRN (12:25)
[2020-01-09] MEDS: NON ADHERENT DRESSING TP SCH (13:00)
--- NOTE | 2020-01-09 13:00 | NUR ---
ROUNDS MADE. PATIENT AAOX4. NO S/S OF DISTRESS NOTED. CALL LIGHT WITHIN REACH.
--- NOTE | 2020-01-09 15:00 | NUR ---
PATIENT FOR DISCHARGED TODAY. PROVIDED DISCHARGE INSTRUCTIONS, PAPERWORK AND WOUND CARE INSTRUCTIONS VIA DRY KILN FEEDER #[id number]. ALL BELONGINGS SIGNED. ID BAND AND IV REMOVED. IV CANNULA INTACT, BLEEDING CONTROLLED. PATIENT WILL BE PICKED UP BY FAMILY VIA PRIVATE VEHICLE.
--- NOTE | 2020-01-09 16:00 | NUR ---
PATIENT PICKED UP BY HER SON VIA PRIVATE VEHICLE. PATIENT STABLE, BROUGHT PATIENT UP TO LOBBY BY W/C. ALL BELONGINGS AND DISCHARGE PAPERWORK GIVEN TO PATIENT.
== END 2020-01-09 16:00 | disposition home or self-care (01) | DRG 344 ==
LOC: MED 12:16 → MTU 17:03
PROVIDERS: ADMIT General Practice; ATTEND General Practice
PROC: 0JBQ0ZZ Excision of Right Foot Subcutaneous Tissue and Fascia, Open Approach (ICD-10-PCS; principal; 2020-01-06)
DX: E11.69 Type 2 diabetes mellitus with other specified complication (principal); M86.9 Osteomyelitis, unspecified; E44.0 Moderate protein-calorie malnutrition; N39.0 Urinary tract infection, site not specified; Z68.25 Body mass index [BMI] 25.0-25.9, adult; I10 Essential (primary) hypertension; E78.5 Hyperlipidemia, unspecified; L03.031 Cellulitis of right toe; Z90.49 Acquired absence of other specified parts of digestive tract; Z90.710 Acquired absence of both cervix and uterus
CPT/HCPCS: 36415; 71045; 73660; 78300; 78315; 80048; 80053; 80202; 80305; 81001; 82948; 83036; 83605; 83690; 83735; 84100; 84134; 84443; 84550; 84702; 85025; 85610; 85651; 85730; 86140; 87040; 87070; 87075; 87081; 87086; 87186; 93925; 93970; 96374; 96375; 99285; J0360; J1815; J1885; J2270; J2543; J3370; J7030; J7060; Q0092

== ENCOUNTER 2020-04-19 10:13 | Emergency (ER) | payer MEDICAID ==
[~2020-04-19] VITALS: Ht 154.9 cm; Wt 58.5 kg
[~2020-04-19 10:13] MED LIST changes: +AMOX1TAB8 PO; +CIPR500T4 PO; +LACT-81 PO
[2020-04-19 10:20] VITALS: BP 102/72
--- NOTE | 2020-04-19 10:20 | NUR ---
PT PLACED IN BED 12. BEDSIDE TRIAGED.
--- NOTE | 2020-04-19 10:25 | NUR ---
C/O DIZZINESS & NAUSEA X1 DAY. PT REPORTS ELEVATED FSBS OF 257 AT HOME THIS MORNING. DENIES FEVER, VOMITING OR DIARRHEA. PT ALSO C/O INTERMITTENT R FLANK PAIN 7/10 X2 DAYS WELL. ABD SOFT/FLAT AND NON TENDER. BOWEL SOUNDS PRESENT X4. BED IN LOW PISITION, SIDE RAIL UP X1.
[2020-04-19] MEDS: ONDANSETRON 4 MG/2 ML VIAL IVP ONE (10:55)
[2020-04-19] MEDS: ACETAMINOPHEN 325 MG TAB PO ONE (10:55)
[2020-04-19] MEDS: NACL 0.9% 1,000 ML IV ONE (10:56)
[2020-04-19 10:59] LABS: EOSINOPHILS % (AUTO) 0.8 % (0.0-4.0); HEMATOCRIT 34.5 % (36-48); HEMOGLOBIN 11.3 g/dL (12.0-16.0); LYMPHOCYTES # (AUTO) 1.1 K/uL (2.5-16.5); LYMPHOCYTES % (AUTO) 30.7 % (20.5-51.1); MEAN CORPUSCULAR HEMOGLOBIN 26 pg (27-31); MEAN CORPUSCULAR HGB CONC 33 g/dL (33-37); MEAN CORPUSCULAR VOLUME 78.9 fL (80-94); MONOCYTES # (AUTO) 0.3 K/uL (0.8-1.0); MONOCYTES % (AUTO) 9.5 % (1.7-9.3); PLATELET COUNT (AUTO) 184 K/uL (140-450); RED BLOOD CELL COUNT(AUTO) 4.38 MIL/uL (4.20-5.40); RED CELL DISTRIBUTION WIDTH 15.5 % (11.6-13.7); WHITE BLOOD COUNT (AUTO) 3.5 K/uL (4.8-10.8)
[2020-04-19 11:19] LABS: ALBUMIN 2.8 g/dL (3.4-5.0); ANION GAP 14.2 (8-16); CARBON DIOXIDE 25.9 mmol/L (21-32); CREATININE 1.3 mg/dL (0.6-1.3); POTASSIUM 4.1 mmol/L (3.5-5.1); TOTAL BILIRUBIN 0.3 mg/dL (0.0-1.0)
[2020-04-19] MEDS ORDERED: cefTRIAXone 1,000 MG VIAL ONE (13:12)
[2020-04-19 13:14] LABS: APPEARANCE,URINE CLOUDY (CLEAR); BILIRUBIN,URINE NEGATIVE (NEGATIVE); BLOOD, URINE 2+ (NEGATIVE); COLOR,URINE YELLOW (YELLOW); LEUKOCYTE ESTERASE ,URINE 1+ (NEGATIVE); NITRITE, URINE POSITIVE (NEGATIVE); PH,URINE 5.5 (5.0-9.0); UGLUCOSE 2+ (NEGATIVE)
[2020-04-19] MEDS: KETOROLAC 30 MG/ML VIAL IVP ONE (13:16)
[2020-04-19 13:55] VITALS: BP 111/74
[2020-04-19 14:13] LABS: RBC,URINE 11-20 (MOD) /HPF (0-5)
== END 2020-04-19 13:54 | disposition home or self-care (01) ==
LOC: MED 10:13
DX: N39.0 Urinary tract infection, site not specified (principal); E11.649 Type 2 diabetes mellitus with hypoglycemia without coma; I10 Essential (primary) hypertension; Z90.49 Acquired absence of other specified parts of digestive tract; Z98.51 Tubal ligation status; Z79.899 Other long term (current) drug therapy
CPT/HCPCS: 36415; 80053; 81001; 85025; 87086; 87186; 93005; 96361; 96365; 96375; 99284; J0696; J1885; J2405; J7030

== ENCOUNTER 2021-07-25 23:58 | Emergency (ER) | payer MEDICAID, SELFPAY ==
[~2021-07-25] VITALS: Ht 154.9 cm; Wt 59.4 kg
[~2021-07-25 23:58] MED LIST changes: -AMOX1TAB8 PO; +ASCO-672 GT; -CIPR500T4 PO; +DOCU-299 PO; -ENAL-197 PO; +FER325 PO; -GLIP10TA3 PO; -LACT-81 PO; +LANTUS SUBQ; +LEVO500T98 PO; +METO25TA PO; +ONDA4TAB PO
[2021-07-26] MEDS ORDERED: KETOROLAC 30 MG/ML VIAL IVP ONE (00:10)
[2021-07-26] MEDS ORDERED: ASPIRIN 325 MG TAB PO ONE (00:10)
--- NOTE | 2021-07-26 00:20 | NUR ---
lab in triage with pt.
--- NOTE | 2021-07-26 00:28 | NUR ---
taken to lab. Addendum: 07/26/21 at 0630 by [facility] TAKEN TO RAD.
[2021-07-26 00:40] VITALS: BP 209/83
[2021-07-26 00:50] LABS: BASOPHILS % (AUTO) 0.6 % (0.0-2.0); EOSINOPHILS # (AUTO) 0.1 K/uL (0-0.4); EOSINOPHILS % (AUTO) 1.7 % (0.0-4.0); HEMATOCRIT 32.2 % (36-48); HEMOGLOBIN 10.7 g/dL (12.0-16.0); LYMPHOCYTES # (AUTO) 1.6 K/uL (2.5-16.5); LYMPHOCYTES % (AUTO) 33.1 % (20.5-51.1); MEAN CORPUSCULAR HEMOGLOBIN 28 pg (27-31); MEAN CORPUSCULAR HGB CONC 33 g/dL (33-37); MEAN CORPUSCULAR VOLUME 85.2 fL (80-94); MONOCYTES # (AUTO) 0.3 K/uL (0.8-1.0); MONOCYTES % (AUTO) 7.2 % (1.7-9.3); NEUTROPHILS # (AUTO) 2.7 K/uL (1.8-7.7); NEUTROPHILS % (AUTO) 57.4 % (42.2-75.2); PLATELET COUNT (AUTO) 193 K/uL (140-450); RED BLOOD CELL COUNT(AUTO) 3.79 MIL/uL (4.20-5.40); RED CELL DISTRIBUTION WIDTH 13.8 % (11.6-13.7); WHITE BLOOD COUNT (AUTO) 4.7 K/uL (4.8-10.8)
[2021-07-26 00:56] LABS: ALBUMIN 2.9 g/dL (3.4-5.0); ANION GAP 12.4 (8-16); CREATININE 1.6 mg/dL (0.6-1.3); POTASSIUM 4.4 mmol/L (3.5-5.1); TOTAL BILIRUBIN 0.4 mg/dL (0.0-1.0)
--- NOTE | 2021-07-26 01:10 | NUR ---
51 yo f bib family after falling in the shower. pt states she was stepping in when she slipped and hurt her left side-10/10 pain prior to medication under left breast, neck, waist, upper arm and radiates to back. pt denies hitting head, no loc. hx:dm2 and htn rx:insulin, bp meds nka
[2021-07-26] MEDS ORDERED: INSULIN REGULAR, HUMAN 100 UNIT/ML VIAL SUBQ ONE (01:15)
[2021-07-26] MEDS ORDERED: NACL 0.9% 2,000 ML IV ONE (01:15)
--- NOTE | 2021-07-26 01:25 | NUR ---
PT AMBULATED TO AND BACK TO BED WITH STEADY GAIT.
--- NOTE | 2021-07-26 03:15 | NUR ---
PT AMBULATED TO AND BACK TO BED WITH STEADY GAIT.
[2021-07-26] MEDS ORDERED: INSULIN REGULAR, HUMAN 100 UNIT/ML VIAL IVP ONE (03:20)
[2021-07-26] MEDS ORDERED: IBUP-2218 PO (03:55)
[2021-07-26] MEDS ORDERED: ACETAMINOPHEN EXTRA STRENGTH 500 MG TAB PO ONE (04:10)
[2021-07-26] MEDS ORDERED: ACETAMINOPHEN EXTRA STRENGTH 500 MG TAB ONE (04:11)
[2021-07-26 04:27] VITALS: BP 173/49
[2021-07-27] MEDS ORDERED: CLON0.1T16 PO (05:11)
== END 2021-07-26 04:27 | disposition home or self-care (01) ==
LOC: MED 23:58
DX: R07.89 Other chest pain (principal); E11.65 Type 2 diabetes mellitus with hyperglycemia; I10 Essential (primary) hypertension; Z79.4 Long term (current) use of insulin; Z79.899 Other long term (current) drug therapy
CPT/HCPCS: 36415; 36600; 71101; 80053; 82009; 82803; 84484; 85025; 96360; 96372; 99284; J1815; J1885; J7030; 93005

== ENCOUNTER 2021-11-14 18:22 | Emergency (ER) | payer MEDICAID ==
[~2021-11-14] VITALS: Ht 154.9 cm; Wt 58.1 kg
[~2021-11-14 18:22] MED LIST changes: +CLON0.1T16 PO; +IBUP-2218 PO; +LEVO-315 PO; -LEVO500T98 PO
[2021-11-14 18:38] VITALS: BP 143/60
--- NOTE | 2021-11-14 18:43 | NUR ---
PT SENT TO LOBBY
== END 2021-11-14 21:37 | disposition left against medical advice (07) ==
LOC: MED 18:22
DX: R19.7 Diarrhea, unspecified (principal); R11.0 Nausea; Z53.21 Procedure and treatment not carried out due to patient leaving prior to being seen by health care provider

== ENCOUNTER 2021-11-26 19:15 | Emergency (ER) | payer MEDICAID ==
[~2021-11-26] VITALS: Ht 154.9 cm; Wt 57.6 kg
[2021-11-26 20:40] VITALS: BP 140/61
--- NOTE | 2021-11-26 20:43 | NUR ---
TO LOBBY A/W BED AMBULATORY
--- NOTE | 2021-11-26 21:51 | NUR ---
PT TAKEN TO BED 5
--- NOTE | 2021-11-26 21:52 | NUR ---
51 Y/O FEMALE BIB FAMILY C/O N/V/D X3 DAYS. PATIENT PRESENTS TO ED WITH WEAKNESS. PT STATES SHE HAS NOT HAD MUCH TO EAT OR DRINK BECAUSE SHE CANNOT KEEP IT DOWN. SKIN IS PINK/WARM/DRY; NO BLOOD IN VOMIT OR DIARRHEA; AAOX4 WITH EVEN AND STEADY GAIT; LUNGS CLEAR BL; HR EVEN AND REGULAR; PT DENIES ANY FEVER, CP, SOB, OR COUGH AT THIS TIME; PATIENT STATES PAIN OF 0/10 AT THIS TIME; VSS; PATIENT POSITIONED FOR COMFORT; HOB ELEVATED; BEDRAILS UP X2; BED DOWN. ER MD MADE AWARE OF PT STATUS. HX: DM NKA MED: INSULIN
--- NOTE | 2021-11-26 22:23 | NUR ---
Dr. Martínez examining patient.
[2021-11-26] MEDS ORDERED: ONDANSETRON 4 MG/2 ML VIAL IVP ONE (23:00)
[2021-11-26] MEDS ORDERED: ACETAMINOPHEN EXTRA STRENGTH 500 MG TAB PO ONE (23:00)
[2021-11-26] MEDS ORDERED: NACL 0.9% 1,000 ML IV ONE (23:00)
[2021-11-26] MEDS ORDERED: PROCHLORPERAZINE 10 MG/2 ML VIAL IVP ONE (23:00)
[2021-11-26 23:30] LABS: BASOPHILS % (AUTO) 0.1 % (0.0-2.0); HEMATOCRIT 28.1 % (36-48); HEMOGLOBIN 9.4 g/dL (12.0-16.0); LYMPHOCYTES # (AUTO) 1.4 K/uL (2.5-16.5); LYMPHOCYTES % (AUTO) 9.9 % (20.5-51.1); MEAN CORPUSCULAR HEMOGLOBIN 27 pg (27-31); MEAN CORPUSCULAR HGB CONC 34 g/dL (33-37); MONOCYTES # (AUTO) 1.2 K/uL (0.8-1.0); MONOCYTES % (AUTO) 8.6 % (1.7-9.3); NEUTROPHILS # (AUTO) 11.5 K/uL (1.8-7.7); NEUTROPHILS % (AUTO) 81.4 % (42.2-75.2); PLATELET COUNT (AUTO) 289 K/uL (140-450); RED BLOOD CELL COUNT(AUTO) 3.55 MIL/uL (4.20-5.40); RED CELL DISTRIBUTION WIDTH 14.7 % (11.6-13.7); WHITE BLOOD COUNT (AUTO) 14.1 K/uL (4.8-10.8)
[2021-11-26 23:49] LABS: ALBUMIN 1.7 g/dL (3.4-5.0); ANION GAP 14.6 (8-16); CREATININE 1.7 mg/dL (0.6-1.3); POTASSIUM 4.6 mmol/L (3.5-5.1); TOTAL BILIRUBIN 0.4 mg/dL (0.0-1.0)
--- NOTE | 2021-11-27 | NUR ---
INFLUENZA AND COVID/CHRIS COLLECTED AND WALKED TO LAB
[2021-11-27 00:13] LABS: APPEARANCE,URINE CLOUDY (CLEAR); BILIRUBIN,URINE 1+ (NEGATIVE); BLOOD, URINE 1+ (NEGATIVE); COLOR,URINE YELLOW (YELLOW); LEUKOCYTE ESTERASE ,URINE 1+ (NEGATIVE); NITRITE, URINE NEGATIVE (NEGATIVE); UGLUCOSE 1+ (NEGATIVE)
[2021-11-27] MEDS ORDERED: ONDA-188 SL (00:19)
[2021-11-27 00:23] LABS: RBC,URINE 0-5 /HPF (0-5); WBC,URINE TOO MANY TO COUNT /HPF (0-5)
[2021-11-27] MEDS ORDERED: CEPH-588 PO (00:45)
[2021-11-27 01:28] VITALS: BP 140/61
--- NOTE | 2021-11-27 01:28 | NUR ---
DC Patient discharged with v/s stable. Written and verbal after care instructions given and explained. Patient alert, oriented and verbalized understanding of instructions. Ambulatory with steady gait. All questions addressed prior to discharge. ID band removed. Patient advised to follow up with PMD. Rx of CEPHALEXIN AND ONDANSETRON given. Patient educated on indication of medication including possible reaction and side effects. Opportunity to ask questions provided and answered. A/OX4, VSS, AMBULATORY, UNLABORED BREATHING, CALM DEMEANOR, AND IV REMOVED.
== END 2021-11-27 01:28 | disposition home or self-care (01) ==
LOC: MED 19:15
DX: R11.2 Nausea with vomiting, unspecified (principal); R19.7 Diarrhea, unspecified; N39.0 Urinary tract infection, site not specified; R00.0 Tachycardia, unspecified; Z20.822 Contact with and (suspected) exposure to COVID-19; E11.9 Type 2 diabetes mellitus without complications; I10 Essential (primary) hypertension; F03.90 Unspecified dementia, unspecified severity, without behavioral disturbance, psychotic disturbance, mood disturbance, and anxiety; Z90.49 Acquired absence of other specified parts of digestive tract; Z98.890 Other specified postprocedural states; Z79.2 Long term (current) use of antibiotics; Z79.899 Other long term (current) drug therapy; Z79.1 Long term (current) use of non-steroidal anti-inflammatories (NSAID)
CPT/HCPCS: 36415; 80053; 81001; 81025; 84703; 85025; 87086; 87426; 87804; 96361; 96374; 96375; 99284; J0780; J2405; J7030

== ENCOUNTER 2022-01-30 08:41 | Inpatient (IN) | payer MEDICAID ==
[~2022-01-30] VITALS: Ht 154.9 cm; Wt 53.5 kg
[~2022-01-30 08:41] MED LIST changes: +AMLO5TAB PO; -ASCO-672 GT; +ASPI81CT95 PO; +CARV12.52 PO; -CLON0.1T16 PO; -IBUP-2218 PO; -LEVO-315 PO; +LIP80 PO; +LISI20TA29 PO; -METO25TA PO; +NITR100C1 PO
[2022-01-30 08:45] VITALS: BP 143/63
[2022-01-30 10:37] LABS: BASOPHILS # (AUTO) 0.1 K/uL (0.00-0.22); EOSINOPHILS # (AUTO) 0.1 K/uL (0-0.4); EOSINOPHILS % (AUTO) 0.8 % (0.0-4.0); HEMATOCRIT 32.9 % (36-48); LYMPHOCYTES # (AUTO) 1.1 K/uL (2.5-16.5); LYMPHOCYTES % (AUTO) 13.6 % (20.5-51.1); MEAN CORPUSCULAR HEMOGLOBIN 27 pg (27-31); MEAN CORPUSCULAR HGB CONC 33 g/dL (33-37); MEAN CORPUSCULAR VOLUME 81.3 fL (80-94); MONOCYTES # (AUTO) 0.4 K/uL (0.8-1.0); MONOCYTES % (AUTO) 5.1 % (1.7-9.3); NEUTROPHILS # (AUTO) 6.6 K/uL (1.8-7.7); NEUTROPHILS % (AUTO) 79.5 % (42.2-75.2); PLATELET COUNT (AUTO) 210 K/uL (140-450); RED BLOOD CELL COUNT(AUTO) 4.05 MIL/uL (4.20-5.40); RED CELL DISTRIBUTION WIDTH 15.1 % (11.6-13.7); WHITE BLOOD COUNT (AUTO) 8.4 K/uL (4.8-10.8)
[2022-01-30 10:46] LABS: ANION GAP 8.1 (8-16); CARBON DIOXIDE 27.5 mmol/L (21-32); CHLORIDE 110 mmol/L (98-107); CREATININE 1.5 mg/dL (0.6-1.3); GFR ARICAN-AMERICAN 47 mL/min (>90); GLUCOSE 162 mg/dL (74-106); POTASSIUM 4.6 mmol/L (3.5-5.1); SODIUM SERUM 141 mmol/L (136-145); UREA NITROGEN, BLOOD 34 mg/dL (7-18)
[2022-01-30] MEDS ORDERED: NACL 0.9% 1,000 ML IV SCH (12:10)
[2022-01-30 12:11] LABS: APPEARANCE,URINE CLOUDY (CLEAR); BILIRUBIN,URINE NEGATIVE (NEGATIVE); BLOOD, URINE 2+ (NEGATIVE); COLOR,URINE AMBER (YELLOW); LEUKOCYTE ESTERASE ,URINE 1+ (NEGATIVE); NITRITE, URINE NEGATIVE (NEGATIVE); UGLUCOSE TRACE (NEGATIVE)
[2022-01-30 12:23] LABS: WBC,URINE 0-5 /HPF (0-5)
[2022-01-30 12:25] LABS: TRICHOMONAS,URINE None Seen /HPF (None Seen); YEAST,URINE None Seen /HPF (None Seen)
[2022-01-30 12:26] LABS: CALCIUM OXALATE CRYSTALS,UR None Seen /HPF (None Seen); COARSE GRANULAR CASTS,URINE None Seen /LPF (None Seen); FINE GRANULAR CASTS,URINE None Seen /LPF (None Seen); HYALINE CASTS, URINE None Seen /LPF (None Seen); OTHER CRYSTALS,URINE None Seen /HPF (None Seen); TRIPLE PHOSPHATE CRYSTAL,UR None Seen /HPF (None Seen); URIC ACID CRYSTALS,URINE None Seen /HPF (None Seen); URINE AMORPHOUS URATE None Seen /HPF (None Seen); WAXY CASTS,URINE None Seen /LPF (None Seen)
[2022-01-30 12:27] LABS: OTHER CASTS, URINE None Seen /LPF (None Seen); RED BLOOD CELL CASTS,URINE None Seen /LPF (None Seen)
[2022-01-30 13:41] LABS: ALBUMIN 2.6 g/dL (3.4-5.0); ASPARTATE AMINOTRANSFERASE 25 U/L (15-37); TOTAL BILIRUBIN 0.4 mg/dL (0.0-1.0)
[2022-01-30] MEDS ORDERED: GLIP5TER PO (13:53)
[2022-01-30] MEDS ORDERED: ISOS10TA9 PO (13:53)
[2022-01-30] MEDS ORDERED: MORPHINE SULFATE 2 MG/ML SYR IVP PRN (13:55)
[2022-01-30] MEDS ORDERED: HYDROcodone/APAP 5/325 MG 1 TAB TAB PO PRN (13:55)
[2022-01-30] MEDS ORDERED: ACETAMINOPHEN 325 MG TAB PO PRN (13:55)
[2022-01-30] MEDS ORDERED: DOCUSATE SODIUM 100 MG GELCAP PO PRN (13:55)
[2022-01-30] MEDS ORDERED: POTASSIUM CHLORIDE 10 MEQ TABER PO PRN (13:55)
[2022-01-30] MEDS ORDERED: MAGNESIUM OXIDE 400 MG TAB PO PRN (13:55)
[2022-01-30] MEDS ORDERED: ONDANSETRON 4 MG/2 ML VIAL IM/IVP PRN (13:55)
[2022-01-30] MEDS ORDERED: SODIUM PHOS / POTASSIUM PHOS 1 PKT PDR PO PRN (13:55)
[2022-01-30] MEDS: NACL 0.9% 1,000 ML IV SCH (15:30)
[2022-01-30 16:00] VITALS: BP 169/65
[2022-01-30 16:06] LABS: MAGNESIUM 1.8 mg/dL (1.8-2.4); PHOSPHORUS 3.9 mg/dL (2.5-4.9)
[2022-01-30] MEDS ORDERED: DEXTROSE 50% 50 ML SYR IVP PRN (16:40)
[2022-01-30] MEDS: FERROUS SULFATE 325 MG TABEC PO SCH (17:18)
[2022-01-30] MEDS: ISOSORBIDE MONONITRATE 30 MG TABER PO SCH (18:40)
[2022-01-30 20:00] VITALS: BP 166/65
[2022-01-30] MEDS: lisinopriL 20 MG TAB PO SCH (21:04)
[2022-01-30] MEDS: ATORVASTATIN 80 MG TAB PO SCH (21:04)
[2022-01-30] MEDS: BLOOD GLUCOSE MONITORING 1 DEV DEV FS SCH (21:05)
[2022-01-30] MEDS: carvediloL 12.5 MG TAB PO SCH (21:05)
[2022-01-30] MEDS: INSULIN LISPRO SLIDING SCALE 100 UNITS/ML VIAL SUBQ PRN (21:05)
[2022-01-31] VITALS: BP 129/55
[2022-01-31 04:00] VITALS: BP 123/49
[2022-01-31 05:55] LABS: BASOPHILS % (AUTO) 0.5 % (0.0-2.0); EOSINOPHILS # (AUTO) 0.1 K/uL (0-0.4); EOSINOPHILS % (AUTO) 2.2 % (0.0-4.0); HEMATOCRIT 25.5 % (36-48); HEMOGLOBIN 8.5 g/dL (12.0-16.0); LYMPHOCYTES # (AUTO) 1.5 K/uL (2.5-16.5); LYMPHOCYTES % (AUTO) 29.9 % (20.5-51.1); MEAN CORPUSCULAR HEMOGLOBIN 27 pg (27-31); MEAN CORPUSCULAR HGB CONC 34 g/dL (33-37); MEAN CORPUSCULAR VOLUME 80.8 fL (80-94); MONOCYTES # (AUTO) 0.4 K/uL (0.8-1.0); MONOCYTES % (AUTO) 8.3 % (1.7-9.3); NEUTROPHILS % (AUTO) 59.1 % (42.2-75.2); PLATELET COUNT (AUTO) 176 K/uL (140-450); RED BLOOD CELL COUNT(AUTO) 3.15 MIL/uL (4.20-5.40); RED CELL DISTRIBUTION WIDTH 14.7 % (11.6-13.7); WHITE BLOOD COUNT (AUTO) 5.1 K/uL (4.8-10.8)
[2022-01-31 06:27] LABS: ANION GAP 8.9 (8-16); CREATININE 1.4 mg/dL (0.6-1.3); POTASSIUM 3.9 mmol/L (3.5-5.1)
[2022-01-31] MEDS: BLOOD GLUCOSE MONITORING 1 DEV DEV FS SCH ×4 (06:48→20:33)
[2022-01-31] MEDS: NACL 0.9% 1,000 ML IV SCH (07:51)
[2022-01-31 08:00] VITALS: BP 142/65
[2022-01-31] MEDS ORDERED: ISOSORBIDE DINITRATE 10 MG TAB PO SCH (09:00)
[2022-01-31] MEDS: carvediloL 12.5 MG TAB PO SCH ×2 (09:06→20:28)
[2022-01-31] MEDS: FERROUS SULFATE 325 MG TABEC PO SCH ×2 (09:06→16:21)
[2022-01-31] MEDS: amLODIPine 5 MG TAB PO SCH (09:07)
[2022-01-31] MEDS: lisinopriL 20 MG TAB PO SCH ×2 (09:07→20:34)
[2022-01-31] MEDS: PANTOPRAZOLE 40 MG TABEC PO SCH (09:07)
[2022-01-31] MEDS: ISOSORBIDE MONONITRATE 30 MG TABER PO SCH (09:08)
[2022-01-31] MEDS: ASPIRIN 81 MG TAB.CHEW PO SCH (09:08)
[2022-01-31 10:07] LABS: HEPATITIS A ANTIBODY IGM Negative (Negative); HEPATITIS B CORE AB TOTAL Negative (Negative); HEPATITIS B SURFACE ANTIBODY Reactive (.); HEPATITIS B SURFACE ANTIGEN Negative (Negative)
[2022-01-31] MEDS: INSULIN LISPRO SLIDING SCALE 100 UNITS/ML VIAL SUBQ PRN ×3 (11:48→20:33)
[2022-01-31 12:00] VITALS: BP 141/61
[2022-01-31 20:00] VITALS: BP 137/58
[2022-01-31] MEDS: ATORVASTATIN 80 MG TAB PO SCH (20:34)
[2022-01-31] MEDS ORDERED: MEROPENEM 500 MG in NACL 0.9% 50 ML IV SCH (21:00)
[2022-02-01] MEDS: NACL 0.9% 1,000 ML IV SCH ×2 (00:52→17:27)
[2022-02-01 04:00] VITALS: BP 107/65
[2022-02-01] MEDS: BLOOD GLUCOSE MONITORING 1 DEV DEV FS SCH ×4 (06:30→21:33)
[2022-02-01] MEDS: INSULIN LISPRO SLIDING SCALE 100 UNITS/ML VIAL SUBQ PRN ×4 (06:31→21:34)
[2022-02-01 07:14] LABS: BASOPHILS % (AUTO) 0.5 % (0.0-2.0); EOSINOPHILS # (AUTO) 0.1 K/uL (0-0.4); EOSINOPHILS % (AUTO) 2.2 % (0.0-4.0); HEMATOCRIT 27.5 % (36-48); HEMOGLOBIN 9.2 g/dL (12.0-16.0); LYMPHOCYTES # (AUTO) 1.8 K/uL (2.5-16.5); LYMPHOCYTES % (AUTO) 40.8 % (20.5-51.1); MEAN CORPUSCULAR HEMOGLOBIN 27 pg (27-31); MEAN CORPUSCULAR HGB CONC 33 g/dL (33-37); MEAN CORPUSCULAR VOLUME 81.1 fL (80-94); MONOCYTES # (AUTO) 0.4 K/uL (0.8-1.0); MONOCYTES % (AUTO) 8.4 % (1.7-9.3); NEUTROPHILS # (AUTO) 2.2 K/uL (1.8-7.7); NEUTROPHILS % (AUTO) 48.1 % (42.2-75.2); PLATELET COUNT (AUTO) 175 K/uL (140-450); RED CELL DISTRIBUTION WIDTH 14.4 % (11.6-13.7); WHITE BLOOD COUNT (AUTO) 4.5 K/uL (4.8-10.8)
[2022-02-01 07:34] LABS: ANION GAP 9.1 (8-16); CARBON DIOXIDE 24.8 mmol/L (21-32); CREATININE 1.3 mg/dL (0.6-1.3); POTASSIUM 3.9 mmol/L (3.5-5.1)
[2022-02-01] MEDS: carvediloL 12.5 MG TAB PO SCH ×2 (08:36→21:28)
[2022-02-01] MEDS: PANTOPRAZOLE 40 MG TABEC PO SCH (08:38)
[2022-02-01] MEDS: ISOSORBIDE MONONITRATE 30 MG TABER PO SCH (08:38)
[2022-02-01] MEDS: amLODIPine 5 MG TAB PO SCH (08:39)
[2022-02-01] MEDS: ASPIRIN 81 MG TAB.CHEW PO SCH (08:39)
[2022-02-01] MEDS: FERROUS SULFATE 325 MG TABEC PO SCH ×2 (08:46→17:30)
[2022-02-01] MEDS: lisinopriL 20 MG TAB PO SCH ×2 (08:47→21:29)
[2022-02-01 12:00] VITALS: BP 145/83
[2022-02-01 12:01] VITALS: BP 177/70
[2022-02-01] MEDS: PIPERACILLIN/TAZOBACTAM 3.375 GM in DEXTROSE 5% 50 ML IV SCH ×2 (12:42→18:04)
[2022-02-01 20:00] VITALS: BP 159/60
[2022-02-01] MEDS: ATORVASTATIN 80 MG TAB PO SCH (21:28)
[2022-02-02] MEDS: PIPERACILLIN/TAZOBACTAM 3.375 GM in DEXTROSE 5% 50 ML IV SCH ×3 (00:30→12:57)
[2022-02-02 04:00] VITALS: BP 146/70
[2022-02-02] MEDS: BLOOD GLUCOSE MONITORING 1 DEV DEV FS SCH ×2 (06:47→11:30)
[2022-02-02] MEDS: INSULIN LISPRO SLIDING SCALE 100 UNITS/ML VIAL SUBQ PRN ×3 (06:48→12:46)
[2022-02-02 07:57] LABS: BASOPHILS % (AUTO) 0.4 % (0.0-2.0); EOSINOPHILS # (AUTO) 0.1 K/uL (0-0.4); EOSINOPHILS % (AUTO) 1.9 % (0.0-4.0); HEMATOCRIT 26.8 % (36-48); LYMPHOCYTES # (AUTO) 1.6 K/uL (2.5-16.5); LYMPHOCYTES % (AUTO) 36.3 % (20.5-51.1); MEAN CORPUSCULAR HEMOGLOBIN 27 pg (27-31); MEAN CORPUSCULAR HGB CONC 34 g/dL (33-37); MEAN CORPUSCULAR VOLUME 80.4 fL (80-94); MONOCYTES # (AUTO) 0.4 K/uL (0.8-1.0); MONOCYTES % (AUTO) 8.5 % (1.7-9.3); NEUTROPHILS # (AUTO) 2.4 K/uL (1.8-7.7); NEUTROPHILS % (AUTO) 52.9 % (42.2-75.2); PLATELET COUNT (AUTO) 171 K/uL (140-450); RED BLOOD CELL COUNT(AUTO) 3.33 MIL/uL (4.20-5.40); RED CELL DISTRIBUTION WIDTH 14.4 % (11.6-13.7); WHITE BLOOD COUNT (AUTO) 4.5 K/uL (4.8-10.8)
[2022-02-02] MEDS: FERROUS SULFATE 325 MG TABEC PO SCH (08:00)
[2022-02-02 08:16] LABS: ANION GAP 10.9 (8-16); CARBON DIOXIDE 23.6 mmol/L (21-32); CREATININE 1.5 mg/dL (0.6-1.3); POTASSIUM 3.5 mmol/L (3.5-5.1)
[2022-02-02] MEDS: lisinopriL 20 MG TAB PO SCH (09:00)
[2022-02-02] MEDS: amLODIPine 5 MG TAB PO SCH (09:00)
[2022-02-02] MEDS: ASPIRIN 81 MG TAB.CHEW PO SCH (09:00)
[2022-02-02] MEDS: ISOSORBIDE MONONITRATE 30 MG TABER PO SCH (09:00)
[2022-02-02] MEDS: PANTOPRAZOLE 40 MG TABEC PO SCH (09:00)
[2022-02-02] MEDS: carvediloL 12.5 MG TAB PO SCH (09:00)
[2022-02-02] MEDS ORDERED: ISOS60TE70 PO (10:39)
== END 2022-02-02 14:20 | disposition home or self-care (01) | DRG 198 ==
LOC: MED 08:41 → MTU 13:36
PROVIDERS: ADMIT Hospitalist; ATTEND Hospitalist
DX: I25.118 Atherosclerotic heart disease of native coronary artery with other forms of angina pectoris (principal); N17.0 Acute kidney failure with tubular necrosis; E43 Unspecified severe protein-calorie malnutrition; E11.22 Type 2 diabetes mellitus with diabetic chronic kidney disease; F03.90 Unspecified dementia, unspecified severity, without behavioral disturbance, psychotic disturbance, mood disturbance, and anxiety; E86.0 Dehydration; E78.5 Hyperlipidemia, unspecified; D50.9 Iron deficiency anemia, unspecified; B96.20 Unspecified Escherichia coli [E. coli] as the cause of diseases classified elsewhere; Z20.822 Contact with and (suspected) exposure to COVID-19; I34.0 Nonrheumatic mitral (valve) insufficiency; Z16.12 Extended spectrum beta lactamase (ESBL) resistance; I12.9 Hypertensive chronic kidney disease with stage 1 through stage 4 chronic kidney disease, or unspecified chronic kidney disease; N18.9 Chronic kidney disease, unspecified; Z86.19 Personal history of other infectious and parasitic diseases; Z79.899 Other long term (current) drug therapy; Z79.82 Long term (current) use of aspirin; Z79.4 Long term (current) use of insulin; Z87.440 Personal history of urinary (tract) infections; Z90.49 Acquired absence of other specified parts of digestive tract; Z68.22 Body mass index [BMI] 22.0-22.9, adult
CPT/HCPCS: 36415; 71045; 80048; 80053; 81001; 82948; 83735; 84100; 84484; 85025; 86704; 86706; 86708; 86709; 86803; 87081; 87086; 87340; 93005; 99285; J0696; J1644; J1815; J2185; J2405; J2543; J7060

== ENCOUNTER 2023-01-03 15:20 | Inpatient (IN) | payer MEDICAID, OTHER ==
[~2023-01-03] VITALS: Ht 160 cm; Wt 50.8 kg
[~2023-01-03 15:20] MED LIST changes: +GLIP5TER PO; +ISOS60TE70 PO; -NITR100C1 PO
[2023-01-03 15:32] VITALS: BP 143/55
--- NOTE | 2023-01-03 15:37 | NUR ---
PT AMBULATED TO ER BED 4
[2023-01-03] MEDS ORDERED: ONDANSETRON 4 MG/2 ML VIAL IVP ONE ×2 (16:00→17:50)
[2023-01-03] MEDS ORDERED: NACL 0.9% 1,000 ML IV ONE ×2 (16:00→18:25)
[2023-01-03 16:56] LABS: BASOPHILS # (AUTO) 0.1 K/uL (0.00-0.22); BASOPHILS % (AUTO) 0.6 % (0.0-2.0); EOSINOPHILS # (AUTO) 0.1 K/uL (0-0.4); EOSINOPHILS % (AUTO) 1.4 % (0.0-4.0); HEMATOCRIT 37.2 % (36-48); HEMOGLOBIN 12.4 g/dL (12.0-16.0); LYMPHOCYTES # (AUTO) 1.4 K/uL (2.5-16.5); LYMPHOCYTES % (AUTO) 15.2 % (20.5-51.1); MEAN CORPUSCULAR HEMOGLOBIN 27 pg (27-31); MEAN CORPUSCULAR HGB CONC 34 g/dL (33-37); MEAN CORPUSCULAR VOLUME 79.5 fL (80-94); MONOCYTES # (AUTO) 0.5 K/uL (0.8-1.0); MONOCYTES % (AUTO) 5.6 % (1.7-9.3); NEUTROPHILS # (AUTO) 6.9 K/uL (1.8-7.7); NEUTROPHILS % (AUTO) 77.2 % (42.2-75.2); PLATELET COUNT (AUTO) 351 K/uL (140-450); RED BLOOD CELL COUNT(AUTO) 4.68 MIL/uL (4.20-5.40); RED CELL DISTRIBUTION WIDTH 14.6 % (11.6-13.7); WHITE BLOOD COUNT (AUTO) 8.9 K/uL (4.8-10.8)
[2023-01-03 17:09] LABS: ALBUMIN 3.2 g/dL (3.4-5.0); ANION GAP 14.2 (8-16); ASPARTATE AMINOTRANSFERASE 42 U/L (15-37); CARBON DIOXIDE 22.6 mmol/L (21-32); CHLORIDE 99 mmol/L (98-107); CREATININE 2.9 mg/dL (0.6-1.3); GFR ARICAN-AMERICAN 22 mL/min (>90); GLUCOSE 357 mg/dL (74-106); LIPASE 87 U/L (73-393); POTASSIUM 3.8 mmol/L (3.5-5.1); SODIUM SERUM 132 mmol/L (136-145); TOTAL BILIRUBIN 0.2 mg/dL (0.0-1.0); UREA NITROGEN, BLOOD 48 mg/dL (7-18)
[2023-01-03] MEDS ORDERED: ONDANSETRON 4 MG/2 ML VIAL ONE (17:12)
[2023-01-03] MEDS ORDERED: NACL 0.9% 500 ML IV ONE (17:40)
[2023-01-03] MEDS ORDERED: LOPERAMIDE 2 MG CAP PO ONE (18:30)
[2023-01-03] MEDS ORDERED: AZITHROMYCIN 250 MG TAB PO ONE (18:30)
[2023-01-03] MEDS ORDERED: cefTRIAXone 1,000 MG VIAL ONE (18:54)
[2023-01-03] MEDS ORDERED: MAG SULF 2000 MG/WATER PREMIX 50 ML IV PRN (18:55)
[2023-01-03] MEDS ORDERED: MORPHINE SULFATE 4 MG/ML SYR IVP PRN (18:55)
[2023-01-03] MEDS ORDERED: KCL 20 MEQ IN 100 mL PREMIX 200 ML IV PRN (18:55)
[2023-01-03] MEDS ORDERED: HYDROcodone/APAP 5/325 MG 1 TAB TAB PO PRN (18:55)
[2023-01-03] MEDS ORDERED: POTASSIUM CHLORIDE 10 MEQ TABER PO PRN (18:55)
[2023-01-03] MEDS ORDERED: MAGNESIUM OXIDE 400 MG TAB PO PRN (18:55)
[2023-01-03] MEDS ORDERED: AZITHROMYCIN 500 MG INJ VIAL IV ONE (19:19)
[2023-01-03] MEDS: AZITHROMYCIN 500 MG in DEXTROSE 5% 250 ML IV SCH (19:38)
--- NOTE | 2023-01-03 19:40 | NUR ---
Patient resting in bed, A/Ox4, chest rise and fall symmetrical, no c/o pain or s/s of distress, patient on monitor.
[2023-01-03] MEDS: NACL 0.9% 1,000 ML IV SCH (20:03)
--- NOTE | 2023-01-03 20:04 | NUR ---
Note kat in EDM - 01/03/23 at 2005 by [id number] Patient resting in bed, A/Ox4, chest rise and fall symmetrical, no c/o pain or s/s of distress, patient on monitor.
[2023-01-03] MEDS ORDERED: DEXTROSE 50% 50 ML SYR IVP PRN (20:50)
[2023-01-03] MEDS: BLOOD GLUCOSE MONITORING 1 DEV DEV FS SCH (21:12)
[2023-01-03] MEDS: INSULIN LISPRO SLIDING SCALE 100 UNITS/ML VIAL SUBQ PRN (21:13)
--- NOTE | 2023-01-03 21:13 | NUR ---
Patient resting in bed, A/Ox4, chest rise and fall symmetrical, no c/o pain or s/s of distress, patient on monitor.
--- NOTE | 2023-01-03 23:00 | NUR ---
Patient resting in bed, A/Ox4, chest rise and fall symmetrical, no c/o pain or s/s of distress, patient on monitor.
--- NOTE | 2023-01-03 23:15 | NUR ---
Patient will be admitted to care of Shaun ALEJANDRA. Admited to telemetry. Will go to room 119A. Belongings list completed. Report to Shaun ALEJANDRA. Shaun ALEJANDRA verbalized understanding, no further questions.
--- NOTE | 2023-01-03 23:30 | NUR ---
RECEIVED PATIENT FROM ER NURSE VIA ESPERANZA. ALERT ORIENTED X 4. PIV INTACT AND PATENT, NO COMPLAIN OF PAIN AT THIS TIME
[2023-01-04] MEDS: ONDANSETRON 4 MG/2 ML VIAL IVP PRN ×2 (00:32→10:25)
[2023-01-04] MEDS: ACETAMINOPHEN 325 MG TAB PO PRN (00:51)
[2023-01-04 04:00] VITALS: BP 140/60
[2023-01-04 06:30] LABS: BASOPHILS % (AUTO) 0.4 % (0.0-2.0); EOSINOPHILS % (AUTO) 0.1 % (0.0-4.0); HEMOGLOBIN 10.1 g/dL (12.0-16.0); LYMPHOCYTES # (AUTO) 1.3 K/uL (2.5-16.5); LYMPHOCYTES % (AUTO) 11.6 % (20.5-51.1); MEAN CORPUSCULAR HEMOGLOBIN 26 pg (27-31); MEAN CORPUSCULAR HGB CONC 33 g/dL (33-37); MEAN CORPUSCULAR VOLUME 79.8 fL (80-94); MONOCYTES # (AUTO) 0.5 K/uL (0.8-1.0); MONOCYTES % (AUTO) 4.9 % (1.7-9.3); NEUTROPHILS # (AUTO) 9.2 K/uL (1.8-7.7); PLATELET COUNT (AUTO) 255 K/uL (140-450); RED BLOOD CELL COUNT(AUTO) 3.88 MIL/uL (4.20-5.40); RED CELL DISTRIBUTION WIDTH 13.8 % (11.6-13.7); WHITE BLOOD COUNT (AUTO) 11.1 K/uL (4.8-10.8)
[2023-01-04] MEDS: NACL 0.9% 1,000 ML IV SCH ×2 (06:42→19:04)
[2023-01-04] MEDS: BLOOD GLUCOSE MONITORING 1 DEV DEV FS SCH ×4 (06:42→20:28)
[2023-01-04 07:06] LABS: ALBUMIN 2.5 g/dL (3.4-5.0); ANION GAP 15.9 (8-16); CARBON DIOXIDE 18.3 mmol/L (21-32); CREATININE 2.4 mg/dL (0.6-1.3); MAGNESIUM 1.8 mg/dL (1.8-2.4); POTASSIUM 4.2 mmol/L (3.5-5.1); TOTAL BILIRUBIN 0.3 mg/dL (0.0-1.0)
--- NOTE | 2023-01-04 07:15 | NUR ---
ENDORSED PT TO AM NURSE FOR CONTINUITY OF CARE.PT IS STABLE
[2023-01-04 08:00] VITALS: BP 157/73
--- NOTE | 2023-01-04 09:17 | NUR ---
PATIENT HAS BEEN SCREENED AND CATEGORIZED MODERATE NUTRITION RISK. PATIENT WILL BE SEEN WITHIN 3-5 DAYS OF ADMISSION. 01/03/23-01/08/[address]
[2023-01-04] MEDS: INSULIN LISPRO SLIDING SCALE 100 UNITS/ML VIAL SUBQ PRN (11:29)
[2023-01-04 12:00] VITALS: BP 152/82
[2023-01-04 16:00] VITALS: BP 158/75
[2023-01-04] MEDS: AZITHROMYCIN 500 MG in DEXTROSE 5% 250 ML IV SCH (19:00)
--- NOTE | 2023-01-04 19:30 | NUR ---
RECEIVED PT FROM AM NURSE FOR CONTINUITY OF CARE.PT IS STABLE
[2023-01-04 20:00] VITALS: BP 159/76
[2023-01-04] MEDS: guaiFENesin 600 MG TABER PO SCH (20:55)
[2023-01-05] VITALS: BP 150/60
--- NOTE | 2023-01-05 01:00 | NUR ---
PATIENT ASLEEP, IV FLUID INFUSING, NO S/SX OF DISTRESS NOTED
[2023-01-05 04:00] VITALS: BP 142/68
[2023-01-05 05:48] LABS: BASOPHILS % (AUTO) 0.6 % (0.0-2.0); EOSINOPHILS % (AUTO) 0.2 % (0.0-4.0); HEMATOCRIT 28.8 % (36-48); HEMOGLOBIN 9.7 g/dL (12.0-16.0); LYMPHOCYTES # (AUTO) 1.4 K/uL (2.5-16.5); LYMPHOCYTES % (AUTO) 32.8 % (20.5-51.1); MEAN CORPUSCULAR HEMOGLOBIN 26 pg (27-31); MEAN CORPUSCULAR HGB CONC 34 g/dL (33-37); MEAN CORPUSCULAR VOLUME 78.4 fL (80-94); MONOCYTES # (AUTO) 0.4 K/uL (0.8-1.0); MONOCYTES % (AUTO) 8.7 % (1.7-9.3); NEUTROPHILS # (AUTO) 2.5 K/uL (1.8-7.7); NEUTROPHILS % (AUTO) 57.7 % (42.2-75.2); PLATELET COUNT (AUTO) 215 K/uL (140-450); RED BLOOD CELL COUNT(AUTO) 3.67 MIL/uL (4.20-5.40); RED CELL DISTRIBUTION WIDTH 14.1 % (11.6-13.7); WHITE BLOOD COUNT (AUTO) 4.3 K/uL (4.8-10.8)
[2023-01-05 06:35] LABS: ALBUMIN 2.2 g/dL (3.4-5.0); CARBON DIOXIDE 21.6 mmol/L (21-32); CREATININE 1.8 mg/dL (0.6-1.3); MAGNESIUM 1.7 mg/dL (1.8-2.4); POTASSIUM 3.6 mmol/L (3.5-5.1); TOTAL BILIRUBIN 0.2 mg/dL (0.0-1.0)
[2023-01-05] MEDS: BLOOD GLUCOSE MONITORING 1 DEV DEV FS SCH ×4 (06:50→20:05)
[2023-01-05 08:00] VITALS: BP 189/68
[2023-01-05] MEDS: guaiFENesin 600 MG TABER PO SCH ×2 (08:49→20:11)
[2023-01-05] MEDS ORDERED: DOCUSATE SODIUM 100 MG GELCAP PO PRN (08:50)
[2023-01-05] MEDS: NACL 0.9% 1,000 ML IV SCH ×2 (08:52→20:55)
[2023-01-05] MEDS: ASPIRIN 81 MG TAB.CHEW PO SCH (08:59)
[2023-01-05] MEDS: carvediloL 12.5 MG TAB PO SCH ×2 (08:59→20:05)
[2023-01-05] MEDS ORDERED: amLODIPine 5 MG TAB PO SCH (09:00)
--- NOTE | 2023-01-05 11:45 | NUR ---
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 FROM HOME WITH DX OF PNI AND JIMMY. PT HAS PAST MEDICAL HX OF DIABETES, HYPERTENSION, DE (SEP 16), TRIPLE BYPASS & CHOLECYSTECTOMY PT REPORTS BEING INDEPENDENT IN ALL ACTIVITIES AND DENIES USE OF DME. PT REPORTS RECEIVING HH 1X WEEKLY FOR 2 WEEKS FOLLOWING HER HEART SURGERY HOWEVER, PT STRUGGLED TO RECALL NAME OF HH AGENCY. PT RESIDES IN A GROUND FLOOR APT WITH HER ADULT CHILDREN, AT THE ADDRESS LISTED ON FILE. PT REPORTS TENTATIVE DC PLAN IS TO RETURN HOME WITH FAMILY PROVIDING TRANSPORTATION. ONCE MEDICALLY STABLE. Addendum: 01/06/23 at 1536 by Dianelys ALLEN Amended: Links added.
[2023-01-05 16:00] VITALS: BP 167/61
[2023-01-05] MEDS: FERROUS SULFATE 325 MG TABEC PO SCH (17:21)
--- NOTE | 2023-01-05 17:39 | NUR ---
PATIENT ASKING FOR MEDICATION FOR INCONTINENCE OF LOOSE STOOLS.
[2023-01-05] MEDS: hydrALAZINE 20 MG/ML VIAL IVP PRN (18:28)
[2023-01-05] MEDS: AZITHROMYCIN 500 MG in DEXTROSE 5% 250 ML IV SCH (18:29)
--- NOTE | 2023-01-05 19:30 | NUR ---
RECEIVED PT IN BED AWAKE, ALERT AND ORIENTED. DENIES PAIN AT THIS TIME. NO ACUTE RESPIRATORY DISTRESS. SKIN WARM AND DRY TO TOUCH. SAFETY PRECAUTIONS IN PLACE, CALL LIGHT IN REACH.
[2023-01-05 19:32] VITALS: BP 134/58
[2023-01-05] MEDS: INSULIN LISPRO SLIDING SCALE 100 UNITS/ML VIAL SUBQ PRN (20:11)
[2023-01-05] MEDS: ACETAMINOPHEN 325 MG TAB PO PRN (20:16)
[2023-01-05] MEDS ORDERED: ATORVASTATIN 80 MG TAB PO SCH (21:00)
[2023-01-06] VITALS: BP 139/57
[2023-01-06 05:42] LABS: BASOPHILS % (AUTO) 0.7 % (0.0-2.0); EOSINOPHILS # (AUTO) 0.1 K/uL (0-0.4); EOSINOPHILS % (AUTO) 1.6 % (0.0-4.0); HEMATOCRIT 27.8 % (36-48); HEMOGLOBIN 9.3 g/dL (12.0-16.0); LYMPHOCYTES # (AUTO) 1.8 K/uL (2.5-16.5); LYMPHOCYTES % (AUTO) 42.4 % (20.5-51.1); MEAN CORPUSCULAR HEMOGLOBIN 26 pg (27-31); MEAN CORPUSCULAR HGB CONC 34 g/dL (33-37); MONOCYTES # (AUTO) 0.4 K/uL (0.8-1.0); MONOCYTES % (AUTO) 8.5 % (1.7-9.3); NEUTROPHILS % (AUTO) 46.8 % (42.2-75.2); PLATELET COUNT (AUTO) 208 K/uL (140-450); RED BLOOD CELL COUNT(AUTO) 3.57 MIL/uL (4.20-5.40); RED CELL DISTRIBUTION WIDTH 14.2 % (11.6-13.7); WHITE BLOOD COUNT (AUTO) 4.2 K/uL (4.8-10.8)
[2023-01-06 06:14] LABS: ALBUMIN 2.2 g/dL (3.4-5.0); ANION GAP 10.5 (8-16); CARBON DIOXIDE 21.8 mmol/L (21-32); CREATININE 1.9 mg/dL (0.6-1.3); MAGNESIUM 1.8 mg/dL (1.8-2.4); POTASSIUM 3.3 mmol/L (3.5-5.1); TOTAL BILIRUBIN 0.4 mg/dL (0.0-1.0)
[2023-01-06] MEDS: BLOOD GLUCOSE MONITORING 1 DEV DEV FS SCH ×3 (06:31→17:27)
--- NOTE | 2023-01-06 06:45 | NUR ---
PATIENT IS ASLEEP. NO S/SX OF PAIN NOR DISCOMFORT. ALL NEEDS ATTENDED TO. SAFETY PRECAUTIONS MAINTAINED SUTING THE SHIFT, CALL LIGHT REMAINS WITHIN REACH.
[2023-01-06 08:00] VITALS: BP 188/66
[2023-01-06] MEDS: FERROUS SULFATE 325 MG TABEC PO SCH ×2 (08:12→17:29)
[2023-01-06] MEDS: hydrALAZINE 20 MG/ML VIAL IVP PRN ×2 (08:12→14:49)
[2023-01-06] MEDS ORDERED: amLODIPine 5 MG TAB PO SCH (09:00)
[2023-01-06] MEDS: carvediloL 12.5 MG TAB PO SCH (09:50)
[2023-01-06] MEDS: guaiFENesin 600 MG TABER PO SCH (09:51)
[2023-01-06] MEDS: ASPIRIN 81 MG TAB.CHEW PO SCH (09:52)
[2023-01-06] MEDS: ONDANSETRON 4 MG/2 ML VIAL IVP PRN (09:52)
[2023-01-06] MEDS: NACL 0.9% 1,000 ML IV SCH (10:10)
--- NOTE | 2023-01-06 15:04 | NUR ---
AMBULATION WITHOUT ASSIST AND WALKER PER PHYSICAL THERAPIST. PATIENT BLOOD PRESSURE WAS 161/60 GIVEN NEEDED HYDRALAZINE.
[2023-01-06] MEDS ORDERED: LOPERAMIDE 2 MG CAP PO PRN (15:20)
[2023-01-06 16:00] VITALS: BP 132/48
--- NOTE | 2023-01-06 16:42 | NUR ---
PATIENT SAYS SHE WILL BE ABLE TO GET A RIDE FROM HER SON POSSIBLY AFTER HE FINISHES WORK. AROUND 7:30 P.M.
[2023-01-06] MEDS ORDERED: AMLO10TA PO (16:50)
[2023-01-06] MEDS ORDERED: IMO2 PO (16:50)
--- NOTE | 2023-01-06 17:07 | NUR ---
01/06/23 RD INITIAL ASSESSMENT COMPLETED PLEASE REFER TO NUTRITION ASSESSMENT UNDER CARE ACTIVITY FOR ESTIMATED NUTRITIONAL NEEDS. 1. CONTINUE CCHO 60 GM DIET TOLERATED 2. RECOMMEND BANATROL TID IF DIARRHEA PERSISTS UNTIL SYMPTOMS RESOLVED 3. RD TO FOLLOW-UP 3-5 DAYS, MODERATE RISK REVIEWED BY JAK LUU RD
== END 2023-01-06 19:20 | disposition home or self-care (01) | DRG 469 ==
LOC: MED 15:20 → MTU 18:47
PROVIDERS: ADMIT Hospitalist; ATTEND Hospitalist
DX: N17.9 Acute kidney failure, unspecified (principal); J18.9 Pneumonia, unspecified organism; R65.10 Systemic inflammatory response syndrome (SIRS) of non-infectious origin without acute organ dysfunction; E44.0 Moderate protein-calorie malnutrition; E87.1 Hypo-osmolality and hyponatremia; R71.0 Precipitous drop in hematocrit; E86.0 Dehydration; A08.4 Viral intestinal infection, unspecified; Z20.822 Contact with and (suspected) exposure to COVID-19; E11.9 Type 2 diabetes mellitus without complications; I10 Essential (primary) hypertension; E78.5 Hyperlipidemia, unspecified; Z68.1 Body mass index [BMI] 19.9 or less, adult; I25.2 Old myocardial infarction; Z90.49 Acquired absence of other specified parts of digestive tract
CPT/HCPCS: 36415; 71045; 78580; 80053; 82948; 83605; 83690; 83735; 84484; 85025; 85379; 87040; 87081; 93005; 96374; 96375; 97116; 97163-GP; 99285; A9540; J0360; J0456; J0696; J2405; J7060; Q0092

== ENCOUNTER 2023-10-28 01:29 | Inpatient (IN) | payer OTHER ==
[~2023-10-28] VITALS: Ht 154.9 cm; Wt 54.9 kg
[~2023-10-28 01:29] MED LIST changes: +AMLO10TA PO; -AMLO5TAB PO; -DOCU-299 PO; +IMO2 PO; -LISI20TA29 PO; -ONDA4TAB PO
[2023-10-28 01:30] VITALS: BP 197/70; PULSE 91; RESP 18; TEMP 97.8; O2SAT 100
[2023-10-28] MEDS: SODIUM PHOSPHATE 118 ML ENEM RC ONE (02:26)
[2023-10-28] MEDS ORDERED: NA P133N1 RC (03:10)
[2023-10-28] MEDS ORDERED: DOCU-299 PO (03:10)
[2023-10-28 05:25] LABS: BASOPHILS % (AUTO) 0.4 % (0.0-2.0); EOSINOPHILS % (AUTO) 0.2 % (0.0-4.0); HEMATOCRIT 30.2 % (36-48); HEMOGLOBIN 10.5 g/dL (12.0-16.0); LYMPHOCYTES # (AUTO) 1.2 K/uL (2.5-16.5); LYMPHOCYTES % (AUTO) 11.5 % (20.5-51.1); MEAN CORPUSCULAR HEMOGLOBIN 29 pg (27-31); MEAN CORPUSCULAR HGB CONC 35 g/dL (33-37); MEAN CORPUSCULAR VOLUME 83.1 fL (80-94); MONOCYTES # (AUTO) 0.5 K/uL (0.8-1.0); MONOCYTES % (AUTO) 5.2 % (1.7-9.3); NEUTROPHILS # (AUTO) 8.6 K/uL (1.8-7.7); NEUTROPHILS % (AUTO) 82.7 % (42.2-75.2); PLATELET COUNT (AUTO) 168 K/uL (140-450); RED BLOOD CELL COUNT(AUTO) 3.63 MIL/uL (4.20-5.40); RED CELL DISTRIBUTION WIDTH 12.6 % (11.6-13.7); WHITE BLOOD COUNT (AUTO) 10.4 K/uL (4.8-10.8)
[2023-10-28] MEDS ORDERED: HYDROcodone/APAP 5/325 MG 1 TAB TAB PO PRN (05:30)
[2023-10-28] MEDS ORDERED: KCL 20 MEQ IN 100 mL PREMIX 200 ML IV PRN (05:30)
[2023-10-28] MEDS ORDERED: MORPHINE SULFATE 4 MG/ML SYR IVP PRN (05:30)
[2023-10-28 05:34] LABS: ANION GAP 18.3 (8-16); CALCIUM 8.7 mg/dL (8.5-10.1); CARBON DIOXIDE 18.8 mmol/L (21-32); CREATININE 3.7 mg/dL (0.6-1.3); POTASSIUM 4.1 mmol/L (3.5-5.1)
[2023-10-28] MEDS: NACL 0.9% 1,000 ML IV ONE (05:58)
[2023-10-28 06:45] VITALS: O2SAT 100
[2023-10-28] MEDS: NACL 0.9% 1,000 ML IV SCH (06:50)
[2023-10-28 07:39] VITALS: O2SAT 100
[2023-10-28] MEDS: LORazepam 1 MG TAB PO PRN (08:07)
[2023-10-28] MEDS: ONDANSETRON 4 MG/2 ML VIAL IVP PRN (08:09)
[2023-10-28] MEDS ORDERED: DEXTROSE 50% 50 ML SYR IVP PRN (08:25)
[2023-10-28] MEDS: LACTULOSE 20 GM/30 ML UDC PO SCH (09:25)
[2023-10-28] MEDS: amLODIPine 5 MG TAB PO SCH (09:26)
[2023-10-28] MEDS: carvediloL 12.5 MG TAB PO SCH (09:27)
[2023-10-28] MEDS: ASPIRIN 81 MG TAB.CHEW PO SCH (09:27)
[2023-10-28] MEDS: POLYETHYLENE GLYCOL 17 GM/PKT PO SCH (09:28)
[2023-10-28] MEDS: INSULIN LANTUS 100 UNITS/ML 10 ML VIAL SUBQ SCH (09:36)
[2023-10-28] MEDS ORDERED: cefTRIAXone 1,000 MG VIAL ONE (10:04)
[2023-10-28] MEDS: BLOOD GLUCOSE MONITORING 1 DEV DEV FS SCH (11:12)
[2023-10-28] MEDS: INSULIN LISPRO SLIDING SCALE 100 UNITS/ML VIAL SUBQ PRN (11:14)
[2023-10-28] MEDS: metroNIDAZOLE 500 MG/NS PREMIX 100 ML IV SCH (13:24)
[2023-10-28] MEDS: ACETAMINOPHEN 325 MG TAB PO PRN (15:26)
[2023-10-28 19:50] VITALS: O2SAT 96
[2023-10-28 21:05] VITALS: BP 122/62; PULSE 58; PULSE 60; RESP 18; TEMP 98.8; O2SAT 96
[2023-10-28 21:08] VITALS: PULSE 60
[2023-10-28] MEDS: ATORVASTATIN 80 MG TAB PO SCH (22:52)
[2023-10-29] VITALS (7 sets, daily range): BP systolic 115–152; BP diastolic 44–63; PULSE 58–73; RESP 16–18; TEMP 97.2–98.7; O2SAT 96–100
[2023-10-29 06:38] LABS: APPEARANCE,URINE HAZY (CLEAR); BILIRUBIN,URINE NEGATIVE (NEGATIVE); BLOOD, URINE 1+ (NEGATIVE); COLOR,URINE YELLOW (YELLOW); LEUKOCYTE ESTERASE ,URINE 1+ (NEGATIVE); NITRITE, URINE NEGATIVE (NEGATIVE); PROTEIN,URINE 3+ (NEGATIVE); UGLUCOSE 2+ (NEGATIVE); UROBILINOGEN,URINE 0.2 EU/dL (0.2 - 1)
[2023-10-29 06:40] LABS: BASOPHILS % (AUTO) 0.8 % (0.0-2.0); EOSINOPHILS # (AUTO) 0.1 K/uL (0-0.4); EOSINOPHILS % (AUTO) 2.7 % (0.0-4.0); HEMOGLOBIN 8.8 g/dL (12.0-16.0); LYMPHOCYTES % (AUTO) 37.7 % (20.5-51.1); MEAN CORPUSCULAR HEMOGLOBIN 29 pg (27-31); MEAN CORPUSCULAR HGB CONC 35 g/dL (33-37); MEAN CORPUSCULAR VOLUME 82.8 fL (80-94); MONOCYTES # (AUTO) 0.3 K/uL (0.8-1.0); MONOCYTES % (AUTO) 6.5 % (1.7-9.3); NEUTROPHILS # (AUTO) 2.8 K/uL (1.8-7.7); NEUTROPHILS % (AUTO) 52.3 % (42.2-75.2); PLATELET COUNT (AUTO) 140 K/uL (140-450); RED BLOOD CELL COUNT(AUTO) 3.01 MIL/uL (4.20-5.40); RED CELL DISTRIBUTION WIDTH 12.7 % (11.6-13.7); WHITE BLOOD COUNT (AUTO) 5.3 K/uL (4.8-10.8)
[2023-10-29 06:53] LABS: BACTERIA,URINE 10-30 (MOD) /HPF (None Seen); CALCIUM OXALATE CRYSTALS,UR 0-10 /HPF (None Seen); SQUAMOUS EPITHELIAL CELL,UR 4-10 (MOD) /LPF (0-3 (FEW)); TRIPLE PHOSPHATE CRYSTAL,UR 0-10 /HPF (None Seen)
[2023-10-29 06:55] LABS: ANION GAP 13.7 (8-16); CALCIUM 8.2 mg/dL (8.5-10.1); CARBON DIOXIDE 19.6 mmol/L (21-32); CREATININE 3.1 mg/dL (0.6-1.3); POTASSIUM 3.3 mmol/L (3.5-5.1)
[2023-10-29 07:43] LABS: URINE TOTAL PROTEIN 393.8 mg/dL (0-12); URINE TPRO CREAT RATIO 6.6 (0-0.20)
[2023-10-29] MEDS: POTASSIUM CHLORIDE 10 MEQ TABER PO SCH (11:35)
[2023-10-29] MEDS: NACL 0.45% 1,000 ML IV SCH (14:58)
[2023-10-29] MEDS: DOCUSATE SOD/SENNA 50/8.6 MG 1 TAB PO PRN (21:34)
[2023-10-29] MEDS: SODIUM PHOSPHATE 118 ML ENEM RC PRN (22:31)
[2023-10-30 04:00] VITALS: BP 142/45; PULSE 75; RESP 18; TEMP 98.2; O2SAT 98
[2023-10-30 07:07] LABS: BASOPHILS % (AUTO) 0.9 % (0.0-2.0); EOSINOPHILS # (AUTO) 0.2 K/uL (0-0.4); EOSINOPHILS % (AUTO) 3.6 % (0.0-4.0); HEMATOCRIT 25.1 % (36-48); HEMOGLOBIN 8.7 g/dL (12.0-16.0); LYMPHOCYTES % (AUTO) 40.6 % (20.5-51.1); MEAN CORPUSCULAR HEMOGLOBIN 29 pg (27-31); MEAN CORPUSCULAR HGB CONC 35 g/dL (33-37); MEAN CORPUSCULAR VOLUME 83.5 fL (80-94); MONOCYTES # (AUTO) 0.4 K/uL (0.8-1.0); MONOCYTES % (AUTO) 7.2 % (1.7-9.3); NEUTROPHILS # (AUTO) 2.4 K/uL (1.8-7.7); NEUTROPHILS % (AUTO) 47.7 % (42.2-75.2); PLATELET COUNT (AUTO) 142 K/uL (140-450); RED BLOOD CELL COUNT(AUTO) 3.01 MIL/uL (4.20-5.40); RED CELL DISTRIBUTION WIDTH 13.1 % (11.6-13.7); WHITE BLOOD COUNT (AUTO) 4.9 K/uL (4.8-10.8)
[2023-10-30 07:22] LABS: ANION GAP 12.7 (8-16); CALCIUM 8.2 mg/dL (8.5-10.1); CARBON DIOXIDE 20.1 mmol/L (21-32); CREATININE 2.9 mg/dL (0.6-1.3); POTASSIUM 3.8 mmol/L (3.5-5.1)
[2023-10-30 08:00] VITALS: BP 164/56; PULSE 65; RESP 17; TEMP 97.9; O2SAT 100; O2SAT 99
[2023-10-30] MEDS ORDERED: ONDA-188 PO (10:25)
[2023-10-30] MEDS ORDERED: LACT-58 PO (10:25)
[2023-10-30] MEDS ORDERED: MIRABULK PO (10:25)
[2023-10-30 16:00] VITALS: BP 169/58; PULSE 75; RESP 18; TEMP 98.9; O2SAT 99
[2023-10-30] MEDS: hydrALAZINE 20 MG/ML VIAL IVP PRN (18:06)
[2023-10-30 20:00] VITALS: BP 148/74; PULSE 84; RESP 16; TEMP 98.7; O2SAT 100; O2SAT 98
[2023-10-31 06:49] LABS: BASOPHILS % (AUTO) 0.7 % (0.0-2.0); EOSINOPHILS # (AUTO) 0.1 K/uL (0-0.4); HEMATOCRIT 26.8 % (36-48); HEMOGLOBIN 9.4 g/dL (12.0-16.0); LYMPHOCYTES # (AUTO) 2.1 K/uL (2.5-16.5); LYMPHOCYTES % (AUTO) 34.9 % (20.5-51.1); MEAN CORPUSCULAR HEMOGLOBIN 30 pg (27-31); MEAN CORPUSCULAR HGB CONC 35 g/dL (33-37); MEAN CORPUSCULAR VOLUME 83.7 fL (80-94); MONOCYTES # (AUTO) 0.3 K/uL (0.8-1.0); MONOCYTES % (AUTO) 5.1 % (1.7-9.3); NEUTROPHILS # (AUTO) 3.6 K/uL (1.8-7.7); NEUTROPHILS % (AUTO) 58.3 % (42.2-75.2); PLATELET COUNT (AUTO) 169 K/uL (140-450); RED BLOOD CELL COUNT(AUTO) 3.21 MIL/uL (4.20-5.40); RED CELL DISTRIBUTION WIDTH 12.8 % (11.6-13.7); WHITE BLOOD COUNT (AUTO) 6.1 K/uL (4.8-10.8)
[2023-10-31 07:05] LABS: ANION GAP 14.7 (8-16); CALCIUM 8.2 mg/dL (8.5-10.1); CARBON DIOXIDE 18.1 mmol/L (21-32); CREATININE 2.9 mg/dL (0.6-1.3); POTASSIUM 3.8 mmol/L (3.5-5.1)
[2023-10-31 08:00] VITALS: PULSE 80; RESP 18; TEMP 97.2; O2SAT 100
[2023-10-31] MEDS ORDERED: METOCLOPRAMIDE 10 MG/2 ML INJ VIAL IVP PRN (12:40)
[2023-10-31 16:00] VITALS: BP 108/60; PULSE 82; RESP 18; TEMP 98; O2SAT 100
[2023-10-31 20:00] VITALS: BP 146/53; PULSE 80; RESP 18; TEMP 97.2; O2SAT 98
[2023-11-01 04:00] VITALS: BP 119/68; PULSE 80; RESP 18; TEMP 98.5; O2SAT 97
[2023-11-01 07:18] LABS: BASOPHILS % (AUTO) 0.8 % (0.0-2.0); EOSINOPHILS # (AUTO) 0.1 K/uL (0-0.4); EOSINOPHILS % (AUTO) 1.8 % (0.0-4.0); HEMATOCRIT 25.7 % (36-48); LYMPHOCYTES # (AUTO) 1.7 K/uL (2.5-16.5); MEAN CORPUSCULAR HEMOGLOBIN 29 pg (27-31); MEAN CORPUSCULAR HGB CONC 35 g/dL (33-37); MONOCYTES # (AUTO) 0.4 K/uL (0.8-1.0); MONOCYTES % (AUTO) 8.2 % (1.7-9.3); NEUTROPHILS # (AUTO) 2.4 K/uL (1.8-7.7); NEUTROPHILS % (AUTO) 52.2 % (42.2-75.2); PLATELET COUNT (AUTO) 153 K/uL (140-450); RED CELL DISTRIBUTION WIDTH 12.9 % (11.6-13.7); WHITE BLOOD COUNT (AUTO) 4.6 K/uL (4.8-10.8)
[2023-11-01 07:37] LABS: ANION GAP 14.5 (8-16); CALCIUM 7.8 mg/dL (8.5-10.1); CREATININE 2.8 mg/dL (0.6-1.3); POTASSIUM 3.5 mmol/L (3.5-5.1)
[2023-11-01 08:00] VITALS: BP 139/57; PULSE 75; PULSE 80; RESP 18; TEMP 97.2; TEMP 98; O2SAT 100; O2SAT 97
[2023-11-01] MEDS: ONDANSETRON 4 MG/2 ML VIAL IVP PRN (14:25)
[2023-11-01] MEDS ORDERED: METOCLOPRAMIDE 10 MG/2 ML INJ VIAL IVP PRN (16:15)
[2023-11-01] MEDS ORDERED: METOCLOPRAMIDE 10 MG/2 ML INJ VIAL IVP SCH (16:20)
[2023-11-01 20:00] VITALS: BP 158/54; PULSE 74; RESP 18; RESP 20; TEMP 97.2; O2SAT 99
[2023-11-02 04:00] VITALS: BP 155/52; PULSE 72; RESP 20; TEMP 97.5; O2SAT 98
[2023-11-02] MEDS ORDERED: POLYETHYLENE GLYCOL 17 GM/PKT PO PRN (06:00)
[2023-11-02 06:43] LABS: BASOPHILS % (AUTO) 0.7 % (0.0-2.0); EOSINOPHILS # (AUTO) 0.1 K/uL (0-0.4); EOSINOPHILS % (AUTO) 1.5 % (0.0-4.0); HEMATOCRIT 24.2 % (36-48); HEMOGLOBIN 8.5 g/dL (12.0-16.0); LYMPHOCYTES # (AUTO) 1.9 K/uL (2.5-16.5); MEAN CORPUSCULAR HEMOGLOBIN 29 pg (27-31); MEAN CORPUSCULAR HGB CONC 35 g/dL (33-37); MEAN CORPUSCULAR VOLUME 83.2 fL (80-94); MONOCYTES # (AUTO) 0.4 K/uL (0.8-1.0); MONOCYTES % (AUTO) 8.2 % (1.7-9.3); NEUTROPHILS # (AUTO) 2.9 K/uL (1.8-7.7); NEUTROPHILS % (AUTO) 54.6 % (42.2-75.2); PLATELET COUNT (AUTO) 164 K/uL (140-450); RED BLOOD CELL COUNT(AUTO) 2.91 MIL/uL (4.20-5.40); RED CELL DISTRIBUTION WIDTH 13.1 % (11.6-13.7); WHITE BLOOD COUNT (AUTO) 5.3 K/uL (4.8-10.8)
[2023-11-02 07:05] LABS: ANION GAP 14.3 (8-16); CALCIUM 7.7 mg/dL (8.5-10.1); CARBON DIOXIDE 19.8 mmol/L (21-32); CREATININE 2.5 mg/dL (0.6-1.3); POTASSIUM 3.1 mmol/L (3.5-5.1)
[2023-11-02 08:00] VITALS: BP 117/60; PULSE 70; RESP 18; TEMP 98.4; O2SAT 95; O2SAT 98
[2023-11-02] MEDS: MAG SULF 2000 MG/WATER PREMIX 50 ML IV PRN (12:33)
[2023-11-02] MEDS: POTASSIUM CHLORIDE 10 MEQ TABER PO PRN (12:33)
[2023-11-02] MEDS ORDERED: METO5TAB4 PO (13:51)
== END 2023-11-02 16:30 | disposition home or self-care (01) | DRG 469 ==
LOC: MED 01:29 → MTU 05:31
PROVIDERS: ADMIT Internal Medicine; ATTEND Internal Medicine
DX: N17.0 Acute kidney failure with tubular necrosis (principal); E44.0 Moderate protein-calorie malnutrition; E11.22 Type 2 diabetes mellitus with diabetic chronic kidney disease; E11.43 Type 2 diabetes mellitus with diabetic autonomic (poly)neuropathy; F03.90 Unspecified dementia, unspecified severity, without behavioral disturbance, psychotic disturbance, mood disturbance, and anxiety; K59.00 Constipation, unspecified; E78.5 Hyperlipidemia, unspecified; I12.9 Hypertensive chronic kidney disease with stage 1 through stage 4 chronic kidney disease, or unspecified chronic kidney disease; I25.10 Atherosclerotic heart disease of native coronary artery without angina pectoris; Z79.899 Other long term (current) drug therapy; Z95.1 Presence of aortocoronary bypass graft; Z79.82 Long term (current) use of aspirin; Z79.4 Long term (current) use of insulin; N18.4 Chronic kidney disease, stage 4 (severe); Z68.22 Body mass index [BMI] 22.0-22.9, adult
CPT/HCPCS: 36415; 74018; 74150; 80048; 81001; 82570; 82948; 83735; 84300; 85025; 87081; 87086; 96361; 96374; 99285; J0360; J0696; J1644; J1815; J2405; J3475; J3490; J7060; Q0092